=== PATIENT | male | born 1960 | race Caucasian/White ===

== ENCOUNTER 2016-08-10 14:24 | Inpatient (IN) | payer BC, OTHER ==
[~2016-08-10] VITALS: Ht 182.9 cm; Wt 108.9 kg
[~2016-08-10 14:24] MED LIST: AMLO5TAB2 PO; AMOX1TAB10 PO; ATOR20TA58 PO; DOXY100T PO; HYDR-2666 PO; ROPI1TAB PO
[2016-08-10] MEDS ORDERED: FENO134C PO (14:30)
[2016-08-10] MEDS ORDERED: IV NORMAL SALINE 1000ML BAG 1,000 ML IV SCH (14:56)
[2016-08-10] MEDS ORDERED: fentaNYL PF VIAL 100 MCG/2 ML VIAL IV PRN (15:00)
[2016-08-10] MEDS ORDERED: PIP/TAZO PER PHARMACY MC PRN (15:00)
[2016-08-10] MEDS: IV NORMAL SALINE 1000ML BAG 1,000 ML IV SCH ×2 (15:05→21:45)
[2016-08-10] MEDS ORDERED: ACETAMINOPHEN 325 MG TABLET. PO PRN (15:15)
[2016-08-10] MEDS ORDERED: MORPHINE SULFATE 4 MG/ML DISP.SYRIN. IV PRN (15:15)
[2016-08-10] MEDS ORDERED: ONDANSETRON PF 4 MG/2 ML VIAL. IV PRN (15:15)
[2016-08-10] MEDS ORDERED: PIPERACILLIN/TAZOBACTAM 3.375 GM in IV NORMAL SALINE 50ML 50 ML IV ONE (15:15)
[2016-08-10 15:26] LABS: BASO % 0 % (0-3); EOS % 0 % (0-3); HEMATOCRIT 41.7 % (39.0-53.0); HEMOGLOBIN 14.7 g/dL (13.0-17.5); LYMPH # 1.1 x10^3/uL (1.0-4.8); LYMPH % 9 % (24-48); MEAN CORPUSCULAR HEMOGLOBIN 31 pg (25-35); MEAN CORPUSCULAR HGB CONC 35 g/dL (31-37); MEAN CORPUSCULAR VOLUME 89 fL (79-100); MONO % 4 % (0-9); NEUT % 87 % (31-73); PLATELET COUNT 162 x10^3/uL (140-400); RED CELL DISTRIBUTION WIDTH 13.3 % (11.5-14.5); WHITE BLOOD COUNT 13.4 x10^3/uL (4.0-11.0)
[2016-08-10 15:35] LABS: CALCIUM 8.8 mg/dL (8.5-10.1); CREATININE 1.2 mg/dL (0.7-1.3); GFR 62.9; POTASSIUM 3.4 mmol/L (3.5-5.1)
--- NOTE | 2016-08-10 15:35 | PHYS DOC ---
Past Medical History Past Medical History: High Cholesterol, Hypertension Past Surgical History: Appendectomy, Other Additional Past Surgical Histo: umbilical surgery Alcohol Use: None Drug Use: None Adult General Chief Complaint Chief Complaint: CELLULITIS HPI HPI Patient is a 56 year old male who presents with right lower extremity pain, swelling, and redness that started 2 days ago and has gradually worsened associated with fever up to 104 F exactly like prior presentation of right lower extremity cellulitis treated 4 months ago. States this time is worse than the last time. Has constant, severe pain. He denies injury, numbness, tingling, weakness, dyspnea. Review of Systems Review of Systems Constitutional: Denies fever or chills [] Eyes: Denies change in visual acuity, redness, or eye pain [] HENT: Denies nasal congestion or sore throat [] Respiratory: Denies cough or shortness of breath [] Cardiovascular: No additional information not addressed in HPI [] GI: Denies abdominal pain, nausea, vomiting, bloody stools or diarrhea [] : Denies dysuria or hematuria [] Musculoskeletal: Denies back pain [] Integument: Denies skin lesions [] Neurologic: Denies headache, focal weakness or sensory changes [] Endocrine: Denies polyuria or polydipsia [] Current Medications Current Medications Current Medications Medications (Trade) Dose Ordered Sig/Sina Start Time Stop Time Status Last Admin Dose Admin Fentanyl Citrate 75 mcg 75 mcg PRN Q15MIN PRN 08/10/16 15:00 08/11/16 14:59 08/10/16 15:25 75 MCG Piperacillin Sod/ Tazobactam Sod (Zosyn Per Pharmacy) 1 each PRN DAILY PRN 08/10/16 15:00 Sodium Chloride (Iv Sodium Chloride 0.9% 1000ml Bag) 1,000 ml @ 1,000 mls/hr Q1H 08/10/16 14:56 08/10/16 15:55 DC 08/10/16 15:25 1,000 MLS/HR Vancomycin HCl (Vanco Per Pharmacy) 1 each PRN DAILY PRN 08/10/16 15:00 08/10/16 16:15 1 EACH Allergies Allergies Allergies Coded Allergies Type Severity Reaction Last Updated Verified fish oil Allergy Intermediate 04/02/16 Yes iodine Allergy Intermediate 04/02/16 Yes niacin Allergy Intermediate 04/02/16 Yes shellfish derived Allergy Intermediate 04/02/16 Yes Physical Exam Physical Exam Constitutional: Well developed, well nourished, no acute distress, non-toxic appearance. [] HENT: Normocephalic, atraumatic, bilateral external ears normal, oropharynx moist, nose normal. [] Eyes: PERRLA, EOMI. [] Neck: Normal range of motion, supple. [] Cardiovascular: Regular tachycardia [] Lungs & Thorax: Bilateral breath sounds clear to auscultation [] Abdomen: Bowel sounds normal, soft, no tenderness. [] Skin: Warm, dry, no rash. [] Back: No tenderness, no CVA tenderness. [] Extremities: RLE with swelling/erythema/warmth/induration/appropriate tenderness distal to the knee with small patch of erythema/warmth/tenderness to medial thigh; soft compartments, no fluctuance; Able to flex/ex/IR/ER hip, knee full rom, ankle df/pf, SILT grossly; dp and pt pulses equal bilaterally Neurologic: Alert and oriented X 3, normal motor function, normal sensory function, no focal deficits noted. [] Psychologic: Affect normal, judgement normal, mood normal. [] Current Patient Data Vital Signs Vital Signs Date Time Temp Pulse Resp B/P Pulse Ox O2 Delivery O2 Flow Rate FiO2 08/10/16 15:00 116 26 128/76 95 08/10/16 14:29 96.0 Room Air 96.0 Lab Values Course & Med Decision Making Course & Med Decision Making Pertinent Labs and Imaging studies reviewed. (See chart for details) Has impressive cellulitis with SIRS criteria qualifying for sepsis. Will admit for IV antibiotics and IVFs. Discussed case with Dr. Carrero, who will admit. Infectious disease consultation placed. Dragon Disclaimer Dragon Disclaimer This electronic medical record was generated, in whole or in part, using a voice recognition dictation system. Departure Departure Impression: Primary Impression: Sepsis Additional Impression: Cellulitis Disposition: ADMITTED INPATIENT Admitting Physician: Ike Carrero Condition: STABLE Referrals: IKE CARRERO MD (PCP) Problem Qualifiers Primary Impression: Sepsis Sepsis type: sepsis due to unspecified organism Qualified Code: A41.9 - Sepsis, unspecified organism Additional Impression: Cellulitis Site of cellulitis: extremity Site of cellulitis of extremity: lower extremity Laterality: right Qualified Code: L03.115 - Cellulitis of right lower limb WHITE,J. CHIO MD Aug 10, 2016 15:35
[2016-08-10] MEDS ORDERED: VANCOMYCIN 2 GM in IV NORMAL SALINE 500ML BAG 500 ML IV ONE (15:45)
[2016-08-10 15:47] LABS: PLT ESTIMATE ADEQUATE (ADEQUATE)
[2016-08-10] MEDS ORDERED: IV NORMAL SALINE 1000ML BAG 1,000 ML IV ONE (16:00)
[2016-08-10] MEDS: VANCOMYCIN PER PHARMACY MC PRN (16:15)
[2016-08-10] MEDS ORDERED: VANCOMYCIN PER PHARMACY MC PRN (16:45)
[2016-08-10] MEDS ORDERED: NAPROXEN 500 MG TABLET PO PRN (16:45)
--- NOTE | 2016-08-10 17:02 | PDOC ---
Provider Note Provider Note history and physical dictated # [id number] GERDA HUMPHRIES MD Aug 10, 2016 17:02
[2016-08-10] MEDS ORDERED: POTASSIUM CHLORIDE 20 MEQ TABLET.ER. PO ONE (17:30)
[2016-08-10 17:48] VITALS: BP 127/81
[2016-08-10] MEDS: rOPINIRole 1 MG TABLET. PO SCH (18:08)
--- NOTE | 2016-08-10 18:25 | RAD ---
PROCEDURE Right lower extremity venous duplex study 08/10/2016 HISTORY Severe chronic right leg swelling. TECHNIQUE Using a combination of real-time ultrasound imaging and color flow and pulse Doppler imaging techniques along with graded compression and augmentation, duplex evaluation of the major deep venous structures of the right lower extremity was performed. Multiple images were obtained. FINDINGS There is no sonographic evidence of deep venous thrombosis involving the visualized deep venous structures of the right lower extremity. A 2.8 centimeter enlarged likely reactive right inguinal lymph node is seen. IMPRESSION There is no sonographic evidence of deep venous thrombosis involving the visualized deep venous structures of the right lower extremity. Electronically signed by: Gulshan Tidwell MD (Aug 10, 2016 18:23:56)
[2016-08-10 19:00] VITALS: BP 121/73
[2016-08-10] MEDS ORDERED: FENO48TA16 PO (19:01)
[2016-08-10] MEDS ORDERED: NAPR500T3 PO (19:04)
[2016-08-10] MEDS ORDERED: IBUP-1027 PO (19:04)
[2016-08-10] MEDS: POTASSIUM CL 20MEQ-0.45% NACL 1,000 ML IV SCH (19:17)
[2016-08-10] MEDS ORDERED: ASPI-482 PO (19:35)
[2016-08-10] MEDS ORDERED: MULT1TAB52 PO (19:35)
--- NOTE | 2016-08-10 21:10 | HP ---
ADMIT DATE: 08/10/2016 He is in room 528. HISTORY OF PRESENT ILLNESS: The patient is a 56-year-old white male with a history of hypertension, hyperlipidemia and previous history of cellulitis in the right lower extremity in March 2016. He was admitted to [facility] with a 3-day history of an increasing redness in his right leg associated with pain and swelling without any injury or skin tear. His temperature was up to 104 degrees yesterday and he was quite weak and has not been eating or drinking well. He did not go to the Emergency Room until today. In the Emergency Room, his lactic acid level was elevated. He had significant erythema in his right leg as well as in the right thigh and had an inguinal lymphadenopathy also noted near his right groin. His heart rate was about 120. He was lucid and his blood pressure was okay. His temperature he states was 104.2 degrees yesterday. He is therefore admitted for further evaluation of cellulitis of his right leg and sepsis. ALLERGIES AND INTOLERANCES: INCLUDE FISH OIL, IODINE, NIACIN, AND SHELLFISH. MEDICATIONS: Amlodipine 5 mg every day, atorvastatin 20 mg every day, Coenzyme Q10, every day, naproxen 500 mg b.i.d. p.r.n., multiple vitamin once a day and Requip 2 mg at 7 p.m. daily. PAST MEDICAL HISTORY: Significant for hypertension, hyperlipidemia, restless legs syndrome and benign prostatic hypertrophy. He had an appendectomy. He had a tubular adenoma, colon polypectomy in 09/2013. He had an umbilical hernia repair and he had cellulitis in his right leg and hospitalized for that in March 2016, SOCIAL HISTORY: He does not drink alcohol nor does he smoke cigarettes. He is employed. FAMILY HISTORY: Noncontributory. REVIEW OF SYSTEMS: GENERAL: He has had some fever and chills. CARDIOVASCULAR: No chest pain. PULMONARY: No cough or shortness of breath. GASTROINTESTINAL: No constipation or diarrhea. SKIN: He had the redness and cellulitis, right lower extremity. ENDOCRINE: No diabetes mellitus. NEUROLOGIC: No focal weakness, but generalized weakness. The rest of systems reviewed are negative except as stated in history of present illness. PHYSICAL EXAMINATION: VITAL SIGNS: Temperature is degrees, apical pulse 125, respiratory rate 18, blood pressure 128/71, oxygen saturation 95% on room air. HEENT: Eyes: Gaze is conjugate. Extraocular muscles are intact. Mouth: Tongue is midline. NECK: There is no cervical lymphadenopathy or thyroid enlargement. HEART: Reveals an S1, S2. There is no S3 or murmur. LUNGS: Clear. ABDOMEN: Soft, nontender. EXTREMITIES: Left lower extremity without edema. Dorsalis pedis pulse 2+. Right lower extremity has significant erythema from the medial aspect of his right foot involving the pretibial area and calf of his right lower extremity and also in the medial aspect of his right thigh. The right leg has significant redness in the pretibial area with some ecchymosis and it is warm and tender. It is swollen about 2+ on the right pretibial area. Examination between his toes shows no evidence of maceration, but he does have dry skin involving the plantar aspect of his right foot and does have a narrow crease abrasion in the right foot without any redness. He does have some lymphadenopathy in his medial right thigh near his groin. REVIEW OF LABORATORY TESTS: His white count was elevated at 13.4, hemoglobin 14.7, platelet count was 162,000. He had 63 polys and 20 bands in his white cell differential. Sodium 136, potassium 3.4, chloride 100, total CO2 was 25, BUN 17, creatinine 1.2, blood sugar nonfasting 184, lactic acid increased at 2.9, calcium 8.8. ASSESSMENT: 1. Cellulitis of the right leg, which is recurrent. 2. Sepsis. 3. Leukocytosis. 4. Hypokalemia. 5. Hypertension. 6. Hyperlipidemia. 7. Restless legs syndrome. PLAN: At this time is to consult Dr. Neo Pabon. Blood cultures x 2 have been ordered. We will get a CBC and CMP tomorrow, urinalysis, EKG and a chest x-ray. He is receiving IV vancomycin now. We will continue IV vancomycin per the pharmacist and IV Zosyn. Elevate the right leg. He had a venous Doppler of the right lower extremity to rule out a deep vein thrombosis. We will put her on some Lovenox for deep vein thrombosis prophylaxis while he is here. We will continue his amlodipine for his hypertension, atorvastatin for his hyperlipidemia and Requip for his restless legs syndrome and repeat a CBC tomorrow. Put him on a regular diet. Also consult Dr. Neo Pabon for Infectious Disease. GERDA HUMPHRIES MD DR: SILVERIO/faustino JOB#: [id number] / [id number]
[2016-08-10] MEDS: ATORVASTATIN CALCIUM 20 MG TABLET PO SCH (21:15)
[2016-08-10] MEDS: ENOXAPARIN 40 MG/0.4 ML SYRINGE. SQ SCH (21:16)
[2016-08-10] MEDS: ACETAMINOPHEN 325 MG TABLET. PO PRN (22:16)
[2016-08-10 22:52] LABS: BILIRUBIN,URINE NEGATIVE (NEG); GLUCOSE,URINE NEGATIVE (NEG); NITRITE,URINE NEGATIVE (NEG); PH,URINE 6.5; PROTEIN,URINE NEGATIVE (NEG-TRACE)
[2016-08-10 22:59] LABS: BACTERIA,URINE 0 /HPF (0-FEW); RBC,URINE OCC /HPF (0-2); SQUAMOUS EPITHELIAL CELL,UR OCC /LPF
[2016-08-10 23:00] VITALS: BP 127/75
[2016-08-11] MEDS: PIPERACILLIN/TAZOBACTAM 3.375 GM in IV NORMAL SALINE 50ML 50 ML IV SCH ×4 (00:09→17:24)
--- NOTE | 2016-08-11 01:30 | ACF ---
Admission Forms Criteria SEPSIS and OTHER FEBRILE ILLNESS, W/O FOCAL INFECTION Clinical Indications for Admission to Inpatient Care ( Place 'X' for any and all applicable criteria): Admission is indicated for ANY ONE of the following (1)(2)(3)(4): [ ] I. Bacteremia [ ]II. Suspected or identified specific infection requiring hospitalization (eg, meningitis, endocarditis) [ ]III. Hemodynamic instability [ ]IV. Altered mental status [X]V. Failure or unavailability of outpatient antimicrobial treatment [ ]. Hypoxemia [ ]VII. Seizures [ ]VIII. High-risk febrile neutropenia [ ]IX. Need for parenteral antibiotic in patient who is likely to abuse vascular access device (eg, injection drug user) [A](7) [ ]X. Temperature greater than 104.9 degrees F (40.5 degrees C) (oral) [ ]XI. Inpatient admission required rather than observation care because of ANY ONE of the following: [ ]1) Specific infection identified that is too severe for outpatient treatment or observation care trial [ ]2) Metabolic disorder (eg, hypoglycemia, hyperglycemia, metabolic acidosis) that is severe or persistent [ ]3) Temperature greater than 103.1 degrees F (39.5 degrees C) ( oral) that is not responsive to observation care treatment [ ]4) IV fluid to replace significant ongoing (eg, for over 24 hours) losses (> 3 L/m2 per day) [ ]5) Supplemental oxygen or respiratory treatments for over 24 hours that is performable only in acute inpatient setting [ ]6) Parenteral nutrition regimen need that must be implemented on inpatient basis [ ]7) Strict or protective (eg, laminar flow) isolation [ ]8) Other condition, treatment or monitoring requiring inpatient admission Extended stay beyond goal length of stay may be needed for(1)(3) [ ]a) Sepsis or septic shock(22) [ ]b) Positive blood cultures [ ]c) Insufficient oral intake [ ]d) High-risk febrile neutropenia(29)(30) [ ]e) Continued fever and clinical instability [ ]f) Clinically active comorbid illness (e.g,heart failure, renal failure , diabetes) The original [employer] content created by Brandi Salcedo has been revised. The portions of the content which have been revised are identified through the use of italic text or in bold, and Brandi Salcedo has neither reviewed nor approved the modified material. All other unmodified content is copyright [facility]. Please see references footnoted in the original [facility] edition 2016 Admission Criteria Met?: Yes FELIPA RAMSEY Aug 11, 2016 01:30
[2016-08-11 03:07] VITALS: BP 117/72
[2016-08-11] MEDS: IV NORMAL SALINE 1000ML BAG 1,000 ML IV SCH ×2 (04:25→21:50)
[2016-08-11 04:35] LABS: BASO % 0 % (0-3); EOS % 1 % (0-3); HEMATOCRIT 36.4 % (39.0-53.0); HEMOGLOBIN 12.8 g/dL (13.0-17.5); LYMPH # 1.4 x10^3/uL (1.0-4.8); LYMPH % 13 % (24-48); MEAN CORPUSCULAR HEMOGLOBIN 32 pg (25-35); MEAN CORPUSCULAR HGB CONC 35 g/dL (31-37); MEAN CORPUSCULAR VOLUME 90 fL (79-100); MONO % 6 % (0-9); NEUT % 81 % (31-73); PLATELET COUNT 144 x10^3/uL (140-400); RED BLOOD COUNT 4.05 x10^6/uL (4.30-5.70); RED CELL DISTRIBUTION WIDTH 13.4 % (11.5-14.5); WHITE BLOOD COUNT 10.8 x10^3/uL (4.0-11.0)
[2016-08-11 04:47] LABS: ALBUMIN 2.7 g/dL (3.4-5.0); ALBUMIN/GLOBULIN RATIO 0.7 (1.0-1.7); CREATININE 1.2 mg/dL (0.7-1.3); GFR 62.9; POTASSIUM 3.9 mmol/L (3.5-5.1); TOTAL BILIRUBIN 1.6 mg/dL (0.2-1.0); TOTAL PROTEIN 6.4 g/dL (6.4-8.2)
[2016-08-11] MEDS: VANCOMYCIN 1.75 GM in IV NORMAL SALINE 500ML BAG 500 ML IV SCH ×2 (05:49→15:12)
[2016-08-11 07:00] VITALS: BP 106/68
--- NOTE | 2016-08-11 08:22 | RAD ---
AP portable chest radiograph 08/10/2016 Clinical History: Fever with hypertension. An AP portable erect digital radiograph of the chest was obtained. Comparison study is dated 08/02/2015. The cardiac silhouette is borderline enlarged. The thoracic aorta is minimally tortuous. No acute pulmonary infiltrate is seen. No pleural effusion or pneumothorax is noted. Degenerative changes are seen involving the thoracic spine and both shoulders. Impression: No acute pulmonary infiltrate is seen.
[2016-08-11] MEDS: MULTIVITAMIN with MINERAL TABLET. PO SCH (08:37)
[2016-08-11] MEDS: VANCOMYCIN PER PHARMACY MC PRN (08:57)
[2016-08-11] MEDS ORDERED: amLODIPine BESYLATE 5 MG TABLET PO SCH (09:00)
[2016-08-11] MEDS: POTASSIUM CL 20MEQ-0.45% NACL 1,000 ML IV SCH (09:11)
--- NOTE | 2016-08-11 10:34 | PDOC ---
PROGRESS NOTES Subjective Subjective febrile yesterday. last temp okay. lab reviewed. wbc better. systolic bp 106 and will d/c amlodipine. says he ate his breakfast well. feels better. venous doppler RLE neg for DVT. Objective Objective Vital Signs Date Time Temp Pulse Resp B/P Pulse Ox O2 Delivery O2 Flow Rate FiO2 08/11/16 08:37 105 106/68 08/11/16 07:00 97.7 16 93 Room Air 97.7 Intake and Output 08/11/16 07:00 Intake Total 400 ml Output Total 1300 ml Balance -900 ml Intake Oral 400 ml Output Urine Total 1300 ml # Voids 2 Physical Exam Abdomen: Soft Heart: Regular rate, Normal S1, Normal S2 Extremities: Other (1 plus edmea RLE but leg raised in bed) General: Alert HEENT: Atraumatic Lungs: Clear to auscultation Neuro: Normal speech Psych/Mental Status: Mental status NL Skin: Other (erythema and ecchymosis right pretibial area. erthyme right calf and medial thigh fading slightly) Assessment Assessment Problems Medical Problems:1. Cellulitis of the right leg, which is recurrent. 2. Sepsis. 3. Leukocytosis.better 4. Hypokalemia.resolved 5. Hypertension.BP on low side 6. Hyperlipidemia. 7. Restless legs syndrome. (1) Cellulitis Status: Acute (2) Sepsis Status: Acute Plan Plan of Care continue iv vancomycin and zosyn ID consult d/c iv fluids d/c amlodipine continue lovenox for dvt prophylaxis elevate RLE eucerin lotion to right foot Comment Review of Relevant I have reviewed the following items amado (where applicable) has been applied. Labs Laboratory Tests Test 08/10/16 15:05 08/10/16 17:00 08/10/16 22:30 08/11/16 04:20 White Blood Count 13.4x10^3/uL (4.0-11.0) 10.8x10^3/uL (4.0-11.0) Red Blood Count 4.70x10^6/uL (4.30-5.70) 4.05x10^6/uL (4.30-5.70) Hemoglobin 14.7g/dL (13.0-17.5) 12.8g/dL (13.0-17.5) Hematocrit 41.7% (39.0-53.0) 36.4% (39.0-53.0) Mean Corpuscular Volume 89fL (79-100) 90fL (79-100) Mean Corpuscular Hemoglobin 31pg (25-35) 32pg (25-35) Mean Corpuscular Hemoglobin Concent 35g/dL (31-37) 35g/dL (31-37) Red Cell Distribution Width 13.3% (11.5-14.5) 13.4% (11.5-14.5) Platelet Count 162x10^3/uL (140-400) 144x10^3/uL (140-400) Neutrophils (%) (Auto) 87% (31-73) 81% (31-73) Lymphocytes (%) (Auto) 9% (24-48) 13% (24-48) Monocytes (%) (Auto) 4% (0-9) 6% (0-9) Eosinophils (%) (Auto) 0% (0-3) 1% (0-3) Basophils (%) (Auto) 0% (0-3) 0% (0-3) Neutrophils # (Auto) 11.7x10^3uL (1.8-7.7) 8.7x10^3uL (1.8-7.7) Lymphocytes # (Auto) 1.1x10^3/uL (1.0-4.8) 1.4x10^3/uL (1.0-4.8) Monocytes # (Auto) 0.5x10^3/uL (0.0-1.1) 0.6x10^3/uL (0.0-1.1) Eosinophils # (Auto) 0.0x10^3/uL (0.0-0.7) 0.1x10^3/uL (0.0-0.7) Basophils # (Auto) 0.0x10^3/uL (0.0-0.2) 0.0x10^3/uL (0.0-0.2) Segmented Neutrophils % 63% (35-66) Band Neutrophils % 20% (0-9) Lymphocytes % 12% (24-48) Monocytes % 5% (0-10) Platelet Estimate Adequate (ADEQUATE) Sodium Level 136mmol/L (136-145) 138mmol/L (136-145) Potassium Level 3.4mmol/L (3.5-5.1) 3.9mmol/L (3.5-5.1) Chloride Level 100mmol/L (98-107) 106mmol/L (98-107) Carbon Dioxide Level 25mmol/L (21-32) 26mmol/L (21-32) Anion Gap 11 (6-14) 6 (6-14) Blood Urea Nitrogen 17mg/dL (8-26) 12mg/dL (8-26) Creatinine 1.2mg/dL (0.7-1.3) 1.2mg/dL (0.7-1.3) Estimated GFR (Cockcroft-Gault) 62.9 62.9 Glucose Level 184mg/dL (70-99) 146mg/dL (70-99) Lactic Acid Level 2.9mmol/L (0.4-2.0) 1.7mmol/L (0.4-2.0) Calcium Level 8.8mg/dL (8.5-10.1) 8.0mg/dL (8.5-10.1) Urine Collection Type Unknown Urine Color Dk yellow Urine Clarity Clear Urine pH 6.5 Urine Specific [place] 1.020 Urine Protein Negativemg/dL (NEG-TRACE) Urine Glucose (UA) Negativemg/dL (NEG) Urine Ketones (Stick) Tracemg/dL (NEG) Urine Blood Negative (NEG) Urine Nitrite Negative (NEG) Urine Bilirubin Negative (NEG) Urine Urobilinogen Dipstick 4.0mg/dL (0.2 mg/dL) Urine Leukocyte Esterase Negative (NEG) Urine RBC Occ/HPF (0-2) Urine WBC 1-4/HPF (0-4) Urine Squamous Epithelial Cells Occ/LPF Urine Bacteria 0/HPF (0-FEW) Urine Mucus Mod/LPF BUN/Creatinine Ratio 10 (6-20) Total Bilirubin 1.6mg/dL (0.2-1.0) Aspartate Amino Transf (AST/SGOT) 19U/L (15-37) Alanine Aminotransferase (ALT/SGPT) 27U/L (16-63) Alkaline Phosphatase 43U/L (46-116) Total Protein 6.4g/dL (6.4-8.2) Albumin 2.7g/dL (3.4-5.0) Albumin/Globulin Ratio 0.7 (1.0-1.7) Laboratory Tests Test 08/10/16 15:05 08/10/16 17:00 08/10/16 22:30 08/11/16 04:20 White Blood Count 13.4x10^3/uL (4.0-11.0) 10.8x10^3/uL (4.0-11.0) Red Blood Count 4.70x10^6/uL (4.30-5.70) 4.05x10^6/uL (4.30-5.70) Hemoglobin 14.7g/dL (13.0-17.5) 12.8g/dL (13.0-17.5) Hematocrit 41.7% (39.0-53.0) 36.4% (39.0-53.0) Mean Corpuscular Volume 89fL (79-100) 90fL (79-100) Mean Corpuscular Hemoglobin 31pg (25-35) 32pg (25-35) Mean Corpuscular Hemoglobin Concent 35g/dL (31-37) 35g/dL (31-37) Red Cell Distribution Width 13.3% (11.5-14.5) 13.4% (11.5-14.5) Platelet Count 162x10^3/uL (140-400) 144x10^3/uL (140-400) Neutrophils (%) (Auto) 87% (31-73) 81% (31-73) Lymphocytes (%) (Auto) 9% (24-48) 13% (24-48) Monocytes (%) (Auto) 4% (0-9) 6% (0-9) Eosinophils (%) (Auto) 0% (0-3) 1% (0-3) Basophils (%) (Auto) 0% (0-3) 0% (0-3) Neutrophils # (Auto) 11.7x10^3uL (1.8-7.7) 8.7x10^3uL (1.8-7.7) Lymphocytes # (Auto) 1.1x10^3/uL (1.0-4.8) 1.4x10^3/uL (1.0-4.8) Monocytes # (Auto) 0.5x10^3/uL (0.0-1.1) 0.6x10^3/uL (0.0-1.1) Eosinophils # (Auto) 0.0x10^3/uL (0.0-0.7) 0.1x10^3/uL (0.0-0.7) Basophils # (Auto) 0.0x10^3/uL (0.0-0.2) 0.0x10^3/uL (0.0-0.2) Segmented Neutrophils % 63% (35-66) Band Neutrophils % 20% (0-9) Lymphocytes % 12% (24-48) Monocytes % 5% (0-10) Platelet Estimate Adequate (ADEQUATE) Sodium Level 136mmol/L (136-145) 138mmol/L (136-145) Potassium Level 3.4mmol/L (3.5-5.1) 3.9mmol/L (3.5-5.1) Chloride Level 100mmol/L (98-107) 106mmol/L (98-107) Carbon Dioxide Level 25mmol/L (21-32) 26mmol/L (21-32) Anion Gap 11 (6-14) 6 (6-14) Blood Urea Nitrogen 17mg/dL (8-26) 12mg/dL (8-26) Creatinine 1.2mg/dL (0.7-1.3) 1.2mg/dL (0.7-1.3) Estimated GFR (Cockcroft-Gault) 62.9 62.9 Glucose Level 184mg/dL (70-99) 146mg/dL (70-99) Lactic Acid Level 2.9mmol/L (0.4-2.0) 1.7mmol/L (0.4-2.0) Calcium Level 8.8mg/dL (8.5-10.1) 8.0mg/dL (8.5-10.1) Urine Collection Type Unknown Urine Color Dk yellow Urine Clarity Clear Urine pH 6.5 Urine Specific [place] 1.020 Urine Protein Negativemg/dL (NEG-TRACE) Urine Glucose (UA) Negativemg/dL (NEG) Urine Ketones (Stick) Tracemg/dL (NEG) Urine Blood Negative (NEG) Urine Nitrite Negative (NEG) Urine Bilirubin Negative (NEG) Urine Urobilinogen Dipstick 4.0mg/dL (0.2 mg/dL) Urine Leukocyte Esterase Negative (NEG) Urine RBC Occ/HPF (0-2) Urine WBC 1-4/HPF (0-4) Urine Squamous Epithelial Cells Occ/LPF Urine Bacteria 0/HPF (0-FEW) Urine Mucus Mod/LPF BUN/Creatinine Ratio 10 (6-20) Total Bilirubin 1.6mg/dL (0.2-1.0) Aspartate Amino Transf (AST/SGOT) 19U/L (15-37) Alanine Aminotransferase (ALT/SGPT) 27U/L (16-63) Alkaline Phosphatase 43U/L (46-116) Total Protein 6.4g/dL (6.4-8.2) Albumin 2.7g/dL (3.4-5.0) Albumin/Globulin Ratio 0.7 (1.0-1.7) Medications Current Medications Fentanyl Citrate 75 mcg 75 mcg PRN Q15MIN PRN IV PAIN GREATER THAN 3/10 Last administered on 08/10/16 15:25; Start 08/10/16 at 15:00; Stop 08/11/16 at 14:59 Sodium Chloride (Iv Sodium Chloride 0.9% 1000ml Bag) 1,000 ml @ 1,000 mls/hr Q1H IV Last administered on 08/10/16 15:25; Start 08/10/16 at 14:56; Stop at 15:55; Status DC Vancomycin HCl (Vanco Per Pharmacy) 1 each PRN DAILY PRN MC SEE COMMENTS Last administered on 08/11/16 08:57; Start 08/10/16 at 15:00 Piperacillin Sod/ Tazobactam Sod 1 each 1 each PRN DAILY PRN MC SEE COMMENTS; Start 08/10/16 at 15:00 Vancomycin HCl 2 gm/Sodium Chloride 500 ml @ 250 mls/hr 1X ONCE IV Last administered on 08/10/16 16:07; Start 08/10/16 at 15:45; Stop 08/10/16 at 17:44 ; Status DC Piperacillin Sod/ Tazobactam Sod/ Sodium Chloride (Zosyn/Iv Sodium Chloride 0.9 % 50ml) 50 ml @ 100 mls/hr 1X ONCE IV Last administered on 08/10/16 15:25; Start 08/10/16 at 15:15; Stop 08/10/16 at 15:44; Status DC Ondansetron HCl (Zofran) 4 mg PRN Q8HRS PRN IV NAUSEA/VOMITING Last administered on 08/10/16 19:27; Start 08/10/16 at 15:15; Stop 08/11/16 at 15:14 Morphine Sulfate 4 mg 4 mg PRN Q2HR PRN IV PAIN; Start 08/10/16 at 15:15; Stop 08/11/16 at 15:14 Sodium Chloride (Iv Sodium Chloride 0.9% 1000ml Bag) 1,000 ml @ 150 mls/hr Q6H40M IV ; Start 08/10/16 at 15:05; Stop 08/11/16 at 15:04 Acetaminophen 650 mg 650 mg PRN Q4HRS PRN PO FEVER; Start 08/10/16 at 15:15; Stop 08/10/16 at 17:02; Status DC Piperacillin Sod/ Tazobactam Sod 3.375 gm/Sodium Chloride 50 ml @ 100 mls/hr Q6HRS IV Last administered on 08/11/16 05:59; Start 08/11/16 at 00:00 Sodium Chloride 1,000 ml @ 1,000 mls/hr 1X ONCE IV Last administered on 17:50; Start 08/10/16 at 16:00; Stop 08/10/16 at 16:59; Status DC Vancomycin HCl/ Sodium Chloride (Iv Sodium Chloride 0.9% 500ml Bag) 500 ml @ 250 mls/hr Q12H IV Last administered on 08/11/16 05:49; Start 08/11/16 at 04: 00 Vancomycin HCl 1 each 1X ONCE MC ; Start 08/12/16 at 03:30; Stop 08/12/16 at 03 :31 Vancomycin HCl (Vanco Per Pharmacy) 1 each PRN DAILY PRN MC SEE COMMENTS; Start 08/10/16 at 16:45; Status UNV Acetaminophen (Tylenol) 650 mg PRN Q4HRS PRN PO MILD PAIN / TEMP Last administered on 08/10/16 22:16; Start 08/10/16 at 16:45 Acetaminophen/ Hydrocodone Bitart (Lortab 5/325) 1 tab PRN Q4HRS PRN PO PAIN; Start 08/10/16 at 16:45 Amlodipine Besylate (Norvasc) 5 mg DAILY PO Last administered on 08/11/16 08: 37; Start 08/11/16 at 09:00 Atorvastatin Calcium (Lipitor) 20 mg QHS PO Last administered on 08/10/16 21: 15; Start 08/10/16 at 21:00 Multivitamins (Thera M Plus) 1 tab DAILY PO Last administered on 08/11/16 08: 37; Start 08/11/16 at 09:00 Naproxen (Naprosyn) 500 mg PRN BID PRN PO PAIN Last administered on 08/11/16 02:39; Start 08/10/16 at 16:45 Ropinirole HCl 2 mg 2 mg DAILY@19 PO Last administered on 08/10/16 18:08; Start 08/10/16 at 19:00 Potassium Chloride/Sodium Chloride (KCl 20 Meq-0.45% Nacl) 1,000 ml @ 75 mls/ hr [id number] IV Last administered on 08/11/16 09:11; Start 08/10/16 at 18:00 Potassium Chloride (Klor-Con) 20 meq 1X ONCE PO Last administered on 18:07; Start 08/10/16 at 17:30; Stop 08/10/16 at 17:31; Status DC Enoxaparin Sodium (Lovenox 40mg Syringe) 40 mg Q24H SQ Last administered on 21:16; Start 08/10/16 at 21:00 Active Scripts Active Requip (Ropinirole Hcl) 1 Mg Tablet 2 Mg PO Q24H Atorvastatin Calcium 20 Mg Tablet 20 Mg PO QHS Amlodipine Besylate 5 Mg Tablet 5 Mg PO DAILY Reported Aspir 81 (Aspirin) 81 Mg Tablet.dr 1 Tab PO DAILY Multivitamins (Multivitamin) 1 Each Tablet 1 Tab PO DAILY Ibuprofen 400 Mg Tablet 200 Mg PO PRN Q6HRS PRN Naproxen 500 Mg Tablet 1 Tab PO Q6HRS PRN Tricor (Fenofibrate Nanocrystallized) 48 Mg Tablet 1 Tab PO DAILY Vitals/I & O Vital Sign - Last 24 Hours 08/10/16 08/10/16 08/10/16 4/22/17 14:29 15:00 15:25 16:00 Temp 96.0 96.0 Pulse 125 116 114 Resp 24 B/P 128/71 128/76 124/72 Pulse Ox 95 95 96 O2 Delivery Room Air 08/10/16 08/10/16 08/10/16 08/10/16 16:13 17:00 17:48 19:00 Temp 99.5 100.9 99.5 100.9 Pulse 116 113 114 Resp 20 B/P 112/73 127/81 121/73 Pulse Ox 94 94 95 O2 Delivery Room Air Room Air 08/10/16 08/11/16 08/11/16 08/11/16 23:00 03:07 07:00 08:37 Temp 100.5 100.3 97.7 100.5 100.3 97.7 Pulse 120 114 105 105 Resp 16 B/P 127/75 117/72 106/68 106/68 Pulse Ox 92 91 93 O2 Delivery Room Air Room Air Room Air Intake and Output 08/10/16 08/10/16 08/11/16 15:00 23:00 07:00 Intake Total 100 ml 300 ml Output Total 1300 ml Balance 100 ml -1000 ml GERDA HUMPHRIES MD Aug 11, 2016 10:34
[2016-08-11 11:00] VITALS: BP 112/79
[2016-08-11] MEDS: MINERAL OIL/PETROLATUM TOPICAL CREAM 113GM JAR. TP SCH ×2 (11:44→21:50)
--- NOTE | 2016-08-11 12:33 | PDOC ---
Infectious Disease Note Vital Sign Vital Signs Vital Signs Date Time Temp Pulse Resp B/P Pulse Ox O2 Delivery O2 Flow Rate FiO2 08/11/16 08:37 105 106/68 08/11/16 07:00 97.7 16 93 Room Air 97.7 Labs Lab Laboratory Tests Test 08/10/16 15:05 08/10/16 17:00 08/10/16 22:30 08/11/16 04:20 White Blood Count 13.4x10^3/uL (4.0-11.0) 10.8x10^3/uL (4.0-11.0) Red Blood Count 4.70x10^6/uL (4.30-5.70) 4.05x10^6/uL (4.30-5.70) Hemoglobin 14.7g/dL (13.0-17.5) 12.8g/dL (13.0-17.5) Hematocrit 41.7% (39.0-53.0) 36.4% (39.0-53.0) Mean Corpuscular Volume 89fL (79-100) 90fL (79-100) Mean Corpuscular Hemoglobin 31pg (25-35) 32pg (25-35) Mean Corpuscular Hemoglobin Concent 35g/dL (31-37) 35g/dL (31-37) Red Cell Distribution Width 13.3% (11.5-14.5) 13.4% (11.5-14.5) Platelet Count 162x10^3/uL (140-400) 144x10^3/uL (140-400) Neutrophils (%) (Auto) 87% (31-73) 81% (31-73) Lymphocytes (%) (Auto) 9% (24-48) 13% (24-48) Monocytes (%) (Auto) 4% (0-9) 6% (0-9) Eosinophils (%) (Auto) 0% (0-3) 1% (0-3) Basophils (%) (Auto) 0% (0-3) 0% (0-3) Neutrophils # (Auto) 11.7x10^3uL (1.8-7.7) 8.7x10^3uL (1.8-7.7) Lymphocytes # (Auto) 1.1x10^3/uL (1.0-4.8) 1.4x10^3/uL (1.0-4.8) Monocytes # (Auto) 0.5x10^3/uL (0.0-1.1) 0.6x10^3/uL (0.0-1.1) Eosinophils # (Auto) 0.0x10^3/uL (0.0-0.7) 0.1x10^3/uL (0.0-0.7) Basophils # (Auto) 0.0x10^3/uL (0.0-0.2) 0.0x10^3/uL (0.0-0.2) Segmented Neutrophils % 63% (35-66) Band Neutrophils % 20% (0-9) Lymphocytes % 12% (24-48) Monocytes % 5% (0-10) Platelet Estimate Adequate (ADEQUATE) Sodium Level 136mmol/L (136-145) 138mmol/L (136-145) Potassium Level 3.4mmol/L (3.5-5.1) 3.9mmol/L (3.5-5.1) Chloride Level 100mmol/L (98-107) 106mmol/L (98-107) Carbon Dioxide Level 25mmol/L (21-32) 26mmol/L (21-32) Anion Gap 11 (6-14) 6 (6-14) Blood Urea Nitrogen 17mg/dL (8-26) 12mg/dL (8-26) Creatinine 1.2mg/dL (0.7-1.3) 1.2mg/dL (0.7-1.3) Estimated GFR (Cockcroft-Gault) 62.9 62.9 Glucose Level 184mg/dL (70-99) 146mg/dL (70-99) Lactic Acid Level 2.9mmol/L (0.4-2.0) 1.7mmol/L (0.4-2.0) Calcium Level 8.8mg/dL (8.5-10.1) 8.0mg/dL (8.5-10.1) Urine Collection Type Unknown Urine Color Dk yellow Urine Clarity Clear Urine pH 6.5 Urine Specific [place] 1.020 Urine Protein Negativemg/dL (NEG-TRACE) Urine Glucose (UA) Negativemg/dL (NEG) Urine Ketones (Stick) Tracemg/dL (NEG) Urine Blood Negative (NEG) Urine Nitrite Negative (NEG) Urine Bilirubin Negative (NEG) Urine Urobilinogen Dipstick 4.0mg/dL (0.2 mg/dL) Urine Leukocyte Esterase Negative (NEG) Urine RBC Occ/HPF (0-2) Urine WBC 1-4/HPF (0-4) Urine Squamous Epithelial Cells Occ/LPF Urine Bacteria 0/HPF (0-FEW) Urine Mucus Mod/LPF BUN/Creatinine Ratio 10 (6-20) Total Bilirubin 1.6mg/dL (0.2-1.0) Aspartate Amino Transf (AST/SGOT) 19U/L (15-37) Alanine Aminotransferase (ALT/SGPT) 27U/L (16-63) Alkaline Phosphatase 43U/L (46-116) Total Protein 6.4g/dL (6.4-8.2) Albumin 2.7g/dL (3.4-5.0) Albumin/Globulin Ratio 0.7 (1.0-1.7) Objective Assessment Recurrent cellulitis of RLE w/ rapid onset Fever Leukocytosis Lactic acidosis HT Plan Plan of Care Vanc and Zosyn Monitor response, f/u am labs and cultures Leg elevation Thank you [id number] Patient seen and examined. Chart reviewed. Case d/w [employer]. Agree with above plan SIRISHA FAGAN APRN Aug 11, 2016 12:33 JOSELYN GODINEZ MD Aug 11, 2016 15:55
[2016-08-11 15:00] VITALS: BP 119/77
[2016-08-11] MEDS: CLINDAMYCIN HCL 150 MG CAPSULE. PO SCH ×2 (17:24→21:49)
[2016-08-11 19:00] VITALS: BP 140/78
[2016-08-11] MEDS: rOPINIRole 1 MG TABLET. PO SCH (19:55)
[2016-08-11] MEDS: ACETAMINOPHEN 325 MG TABLET. PO PRN (21:49)
[2016-08-11] MEDS: ATORVASTATIN CALCIUM 20 MG TABLET PO SCH (21:49)
[2016-08-11] MEDS: ENOXAPARIN 40 MG/0.4 ML SYRINGE. SQ SCH (21:50)
[2016-08-11 23:00] VITALS: BP 139/79
[2016-08-12] MEDS: PIPERACILLIN/TAZOBACTAM 3.375 GM in IV NORMAL SALINE 50ML 50 ML IV SCH ×2 (00:16→07:37)
[2016-08-12 03:00] VITALS: BP 124/73
[2016-08-12 03:53] LABS: BASO % 0 % (0-3); EOS % 1 % (0-3); HEMATOCRIT 36.3 % (39.0-53.0); HEMOGLOBIN 12.8 g/dL (13.0-17.5); LYMPH # 1.9 x10^3/uL (1.0-4.8); LYMPH % 21 % (24-48); MEAN CORPUSCULAR HEMOGLOBIN 31 pg (25-35); MEAN CORPUSCULAR HGB CONC 35 g/dL (31-37); MEAN CORPUSCULAR VOLUME 89 fL (79-100); MONO % 7 % (0-9); NEUT % 71 % (31-73); PLATELET COUNT 153 x10^3/uL (140-400); RED BLOOD COUNT 4.09 x10^6/uL (4.30-5.70); RED CELL DISTRIBUTION WIDTH 13.1 % (11.5-14.5); WHITE BLOOD COUNT 9.2 x10^3/uL (4.0-11.0)
[2016-08-12 04:03] LABS: CALCIUM 7.8 mg/dL (8.5-10.1); CREATININE 0.9 mg/dL (0.7-1.3); GFR 87.6
[2016-08-12] MEDS ORDERED: VANCOMYCIN 2 GM in IV NORMAL SALINE 500ML BAG 500 ML IV SCH (04:30)
[2016-08-12] MEDS: VANCOMYCIN PER PHARMACY MC PRN ×2 (05:56→05:57)
--- NOTE | 2016-08-12 06:03 | CONS ---
DATE OF CONSULTATION: 08/10/2016 REFERRING PHYSICIAN: Dr. Garcia. REASON FOR CONSULTATION: Right lower extremity cellulitis. HISTORY OF PRESENT ILLNESS: This patient is a 56-year-old male, who about 4-5 days ago was getting ready for bed, he noticed his right lower leg was swollen and red. He had been working out in the yard earlier that day. He does not recall any injury or insect bites. That night, he slept with his leg elevated. By morning, he noticed the swelling had improved. As the day progressed, he started not to feel well. He developed a fever of 104 associated with shakes/chills, generalized weakness and fatigue. Over the next couple of days, the swelling and redness increased and the leg became more painful. He took ibuprofen, which relieved his fever, but not the pain. He had a previous history of cellulitis of the right lower leg in 2016 where he was hospitalized and treated with IV antibiotics. He feels this time symptoms are much worse. On arrival to the ER, he had elevated white blood cell count of 13,400, segs 63%, bands 20%. Lactic acid 2.9 and a creatinine of 1.2. Blood cultures are pending. No sonographic evidence of DVT of right leg noted. He started on vancomycin and Zosyn. Since admission, the patient had been running low-grade fevers, which are starting to settle down so far today. The patient feels that the redness is starting to recede some, though his leg is still quite tender to the touch and swollen. His appetite has since improved. He ate a good breakfast earlier. He denies nausea, vomiting or diarrhea. He denies muscle aches, joint pains or rash. He denies dysuria, frequency or urgency. He denies headache, nasal/sinus congestion or sore throat. He denies cough, shortness of air ___[id number]__ or wheezing. He denies chest pain or palpitations. PAST MEDICAL HISTORY: Hypertension and hyperlipidemia. PAST SURGICAL HISTORY: Appendectomy. SOCIAL HISTORY: The patient is . He lives at home. 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 Nonsmoker. No history of alcohol or illicit drug use. FAMILY HISTORY: Positive for heart disease and cancer. ALLERGIES: LISTED NIACIN, IODINE AND SHELLFISH. MEDICATIONS: Vancomycin, Zosyn. Other medications are available and have been reviewed on the MAR. REVIEW OF SYSTEMS: Per HPI, otherwise all other review of systems are negative. PHYSICAL EXAMINATION: GENERAL: A male, propped up in bed with his right leg elevated, in no apparent distress. VITAL SIGNS: Temperature 97.7, T-max 100.9, blood pressure 106/68, heart rate 105, respiratory rate 16, pulse oximetry is 93% on room air, weight is 240 pounds. HEENT: Pupils equally round, reactive. Normal conjunctivae. Oropharynx cavity pink and moist. No lesions seen. NECK: Supple, no adenopathy present. CHEST: Lungs clear to auscultation. HEART: Normal S1 and S2. No murmur appreciated. ABDOMEN: Bowel sounds are present, soft, nontender. EXTREMITIES: Unremarkable except right lower extremity is swollen and markedly erythematous, primarily below the knee and ankle, a small area on the anterior thigh. Warm and tender. Distal pulses palpable. NEUROLOGIC: Alert and oriented x 3. Moves all extremities. SKIN: Without rash. LABORATORY DATA: Today; WBC 10.8, hemoglobin 12.8, platelet count 144,000. Electrolytes are unremarkable. Creatinine 1.2, BUN 12, glucose 146. Repeat lactic acid 1.7, total bilirubin 1.6, AST 19, ALT 27, albumin 2.7. Urinalysis unremarkable for infection. Blood cultures are pending. Venous Doppler ultrasound, negative for DVT. Chest x-ray unremarkable. IMPRESSION: 1. Recurrent cellulitis of right lower extremity with rapid onset. 2. Fever. 3. Leukocytosis. 4. Lactic acidosis. 5. Hypertension. PLAN: Continue the vancomycin and Zosyn for now. Monitor response and will follow up on the morning laboratory values and cultures. Leg elevation. Thank you, Dr. Garcia for asking us to participate in this patient's care. Should you have further questions or concerns, please call. JOSELYN GDOINEZ MD DR: JESÚS/faustino JOB#: [id number] / [id number]
--- NOTE | 2016-08-12 06:45 | EKG ---
[facility] [address] [place] [address] Test Date: 2016-08-11 Test Time: 07:28:41 Pat Name: ABDULKADIR JOSEPH Department: Room: 528 1 Gender: M Account Development Representative: CASEY : 1960 Requested By: GERDA HUMPHRIES Order Number: [id number] Reading MD: Alan López Measurements Intervals [place] Rate: 112 P: 45 NM: 158 QRS: 63 QRSD: 98 T: 29 QT: 318 QTc: 436 Interpretive Statements SINUS TACHYCARDIA INCOMPLETE RIGHT BUNDLE BRANCH BLOCK Electronically Signed On 08-13-2016 15:32:36 CDT by Alan López
[2016-08-12 07:00] VITALS: BP 144/80
--- NOTE | 2016-08-12 08:42 | PDOC ---
PROGRESS NOTES Subjective Subjective feels better. febrile last night but afebrile this morning. 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 lab reviewed. blood cultures negative so far. Objective Objective Vital Signs Date Time Temp Pulse Resp B/P Pulse Ox O2 Delivery O2 Flow Rate FiO2 08/12/16 03:00 97.9 107 24 124/73 93 Room Air 97.9 Intake and Output 08/12/16 07:00 Intake Total 650 ml Output Total 3100 ml Balance -2450 ml Intake Oral 600 ml IV Total 50 ml Output Urine Total 3100 ml Physical Exam Abdomen: Soft Heart: Regular rate, Normal S1, Normal S2 Extremities: Other (1 plus edema RLE) General: Alert HEENT: Atraumatic Lungs: Clear to auscultation Neuro: Normal speech Psych/Mental Status: Mental status NL Skin: Other (erythema and ecchymosis and tenderness right pretibial area. thigh and upper calf redness fading) Assessment Assessment Problems Medical Problems:1. Cellulitis of the right leg, which is recurrent. improving 2. Sepsis. 3. Leukocytosis. resolved 4. Hypokalemia. resolved 5. Hypertension. okay off of amlodipine 6. Hyperlipidemia. 7. Restless legs syndrome. (1) Cellulitis Status: Acute (2) Sepsis Status: Acute Plan Plan of Care continue iv vancomycin and zosyn. Comment Review of Relevant I have reviewed the following items amado (where applicable) has been applied. Labs Laboratory Tests Test 08/10/16 15:05 08/10/16 17:00 08/10/16 22:30 08/11/16 04:20 White Blood Count 13.4x10^3/uL (4.0-11.0) 10.8x10^3/uL (4.0-11.0) Red Blood Count 4.70x10^6/uL (4.30-5.70) 4.05x10^6/uL (4.30-5.70) Hemoglobin 14.7g/dL (13.0-17.5) 12.8g/dL (13.0-17.5) Hematocrit 41.7% (39.0-53.0) 36.4% (39.0-53.0) Mean Corpuscular Volume 89fL (79-100) 90fL (79-100) Mean Corpuscular Hemoglobin 31pg (25-35) 32pg (25-35) Mean Corpuscular Hemoglobin Concent 35g/dL (31-37) 35g/dL (31-37) Red Cell Distribution Width 13.3% (11.5-14.5) 13.4% (11.5-14.5) Platelet Count 162x10^3/uL (140-400) 144x10^3/uL (140-400) Neutrophils (%) (Auto) 87% (31-73) 81% (31-73) Lymphocytes (%) (Auto) 9% (24-48) 13% (24-48) Monocytes (%) (Auto) 4% (0-9) 6% (0-9) Eosinophils (%) (Auto) 0% (0-3) 1% (0-3) Basophils (%) (Auto) 0% (0-3) 0% (0-3) Neutrophils # (Auto) 11.7x10^3uL (1.8-7.7) 8.7x10^3uL (1.8-7.7) Lymphocytes # (Auto) 1.1x10^3/uL (1.0-4.8) 1.4x10^3/uL (1.0-4.8) Monocytes # (Auto) 0.5x10^3/uL (0.0-1.1) 0.6x10^3/uL (0.0-1.1) Eosinophils # (Auto) 0.0x10^3/uL (0.0-0.7) 0.1x10^3/uL (0.0-0.7) Basophils # (Auto) 0.0x10^3/uL (0.0-0.2) 0.0x10^3/uL (0.0-0.2) Segmented Neutrophils % 63% (35-66) Band Neutrophils % 20% (0-9) Lymphocytes % 12% (24-48) Monocytes % 5% (0-10) Platelet Estimate Adequate (ADEQUATE) Sodium Level 136mmol/L (136-145) 138mmol/L (136-145) Potassium Level 3.4mmol/L (3.5-5.1) 3.9mmol/L (3.5-5.1) Chloride Level 100mmol/L (98-107) 106mmol/L (98-107) Carbon Dioxide Level 25mmol/L (21-32) 26mmol/L (21-32) Anion Gap 11 (6-14) 6 (6-14) Blood Urea Nitrogen 17mg/dL (8-26) 12mg/dL (8-26) Creatinine 1.2mg/dL (0.7-1.3) 1.2mg/dL (0.7-1.3) Estimated GFR (Cockcroft-Gault) 62.9 62.9 Glucose Level 184mg/dL (70-99) 146mg/dL (70-99) Lactic Acid Level 2.9mmol/L (0.4-2.0) 1.7mmol/L (0.4-2.0) Calcium Level 8.8mg/dL (8.5-10.1) 8.0mg/dL (8.5-10.1) Urine Collection Type Unknown Urine Color Dk yellow Urine Clarity Clear Urine pH 6.5 Urine Specific Cotter 1.020 Urine Protein Negativemg/dL (NEG-TRACE) Urine Glucose (UA) Negativemg/dL (NEG) Urine Ketones (Stick) Tracemg/dL (NEG) Urine Blood Negative (NEG) Urine Nitrite Negative (NEG) Urine Bilirubin Negative (NEG) Urine Urobilinogen Dipstick 4.0mg/dL (0.2 mg/dL) Urine Leukocyte Esterase Negative (NEG) Urine RBC Occ/HPF (0-2) Urine WBC 1-4/HPF (0-4) Urine Squamous Epithelial Cells Occ/LPF Urine Bacteria 0/HPF (0-FEW) Urine Mucus Mod/LPF BUN/Creatinine Ratio 10 (6-20) Total Bilirubin 1.6mg/dL (0.2-1.0) Aspartate Amino Transf (AST/SGOT) 19U/L (15-37) Alanine Aminotransferase (ALT/SGPT) 27U/L (16-63) Alkaline Phosphatase 43U/L (46-116) Total Protein 6.4g/dL (6.4-8.2) Albumin 2.7g/dL (3.4-5.0) Albumin/Globulin Ratio 0.7 (1.0-1.7) Test 4/24/17 03:10 White Blood Count 9.2x10^3/uL (4.0-11.0) Red Blood Count 4.09x10^6/uL (4.30-5.70) Hemoglobin 12.8g/dL (13.0-17.5) Hematocrit 36.3% (39.0-53.0) Mean Corpuscular Volume 89fL (79-100) Mean Corpuscular Hemoglobin 31pg (25-35) Mean Corpuscular Hemoglobin Concent 35g/dL (31-37) Red Cell Distribution Width 13.1% (11.5-14.5) Platelet Count 153x10^3/uL (140-400) Neutrophils (%) (Auto) 71% (31-73) Lymphocytes (%) (Auto) 21% (24-48) Monocytes (%) (Auto) 7% (0-9) Eosinophils (%) (Auto) 1% (0-3) Basophils (%) (Auto) 0% (0-3) Neutrophils # (Auto) 6.6x10^3uL (1.8-7.7) Lymphocytes # (Auto) 1.9x10^3/uL (1.0-4.8) Monocytes # (Auto) 0.6x10^3/uL (0.0-1.1) Eosinophils # (Auto) 0.1x10^3/uL (0.0-0.7) Basophils # (Auto) 0.0x10^3/uL (0.0-0.2) Sodium Level 139mmol/L (136-145) Potassium Level 4.0mmol/L (3.5-5.1) Chloride Level 106mmol/L (98-107) Carbon Dioxide Level 25mmol/L (21-32) Anion Gap 8 (6-14) Blood Urea Nitrogen 10mg/dL (8-26) Creatinine 0.9mg/dL (0.7-1.3) Estimated GFR (Cockcroft-Gault) 87.6 Glucose Level 105mg/dL (70-99) Calcium Level 7.8mg/dL (8.5-10.1) Vancomycin Level Trough 8.2mcg/mL (10.0-20.0) Vancomycin Last Dose Date 08/11/16 Vancomycin Last Dose Time 1600 Laboratory Tests Test 08/12/16 03:10 White Blood Count 9.2x10^3/uL (4.0-11.0) Red Blood Count 4.09x10^6/uL (4.30-5.70) Hemoglobin 12.8g/dL (13.0-17.5) Hematocrit 36.3% (39.0-53.0) Mean Corpuscular Volume 89fL (79-100) Mean Corpuscular Hemoglobin 31pg (25-35) Mean Corpuscular Hemoglobin Concent 35g/dL (31-37) Red Cell Distribution Width 13.1% (11.5-14.5) Platelet Count 153x10^3/uL (140-400) Neutrophils (%) (Auto) 71% (31-73) Lymphocytes (%) (Auto) 21% (24-48) Monocytes (%) (Auto) 7% (0-9) Eosinophils (%) (Auto) 1% (0-3) Basophils (%) (Auto) 0% (0-3) Neutrophils # (Auto) 6.6x10^3uL (1.8-7.7) Lymphocytes # (Auto) 1.9x10^3/uL (1.0-4.8) Monocytes # (Auto) 0.6x10^3/uL (0.0-1.1) Eosinophils # (Auto) 0.1x10^3/uL (0.0-0.7) Basophils # (Auto) 0.0x10^3/uL (0.0-0.2) Sodium Level 139mmol/L (136-145) Potassium Level 4.0mmol/L (3.5-5.1) Chloride Level 106mmol/L (98-107) Carbon Dioxide Level 25mmol/L (21-32) Anion Gap 8 (6-14) Blood Urea Nitrogen 10mg/dL (8-26) Creatinine 0.9mg/dL (0.7-1.3) Estimated GFR (Cockcroft-Gault) 87.6 Glucose Level 105mg/dL (70-99) Calcium Level 7.8mg/dL (8.5-10.1) Vancomycin Level Trough 8.2mcg/mL (10.0-20.0) Vancomycin Last Dose Date 08/11/16 Vancomycin Last Dose Time 1600 Microbiology 08/10/16 Blood Culture - Preliminary, Resulted NO GROWTH AFTER 1 DAY Medications Current Medications Fentanyl Citrate 75 mcg 75 mcg PRN Q15MIN PRN IV PAIN GREATER THAN 3/10 Last administered on 08/10/16 15:25; Start 08/10/16 at 15:00; Stop 08/11/16 at 14:59 ; Status DC Sodium Chloride (Iv Sodium Chloride 0.9% 1000ml Bag) 1,000 ml @ 1,000 mls/hr Q1H IV Last administered on 08/10/16 15:25; Start 08/10/16 at 14:56; Stop at 15:55; Status DC Vancomycin HCl (Vanco Per Pharmacy) 1 each PRN DAILY PRN MC SEE COMMENTS Last administered on 08/12/16 05:57; Start 08/10/16 at 15:00 Piperacillin Sod/ Tazobactam Sod 1 each 1 each PRN DAILY PRN MC SEE COMMENTS; Start 08/10/16 at 15:00 Vancomycin HCl 2 gm/Sodium Chloride 500 ml @ 250 mls/hr 1X ONCE IV Last administered on 08/10/16 16:07; Start 08/10/16 at 15:45; Stop 08/10/16 at 17:44 ; Status DC Piperacillin Sod/ Tazobactam Sod/ Sodium Chloride (Zosyn/Iv Sodium Chloride 0.9 % 50ml) 50 ml @ 100 mls/hr 1X ONCE IV Last administered on 08/10/16 15:25; Start 08/10/16 at 15:15; Stop 08/10/16 at 15:44; Status DC Ondansetron HCl (Zofran) 4 mg PRN Q8HRS PRN IV NAUSEA/VOMITING Last administered on 08/10/16 19:27; Start 08/10/16 at 15:15; Stop 08/11/16 at 15:14 ; Status DC Morphine Sulfate 4 mg 4 mg PRN Q2HR PRN IV PAIN; Start 08/10/16 at 15:15; Stop 08/11/16 at 15:14; Status DC Sodium Chloride (Iv Sodium Chloride 0.9% 1000ml Bag) 1,000 ml @ 150 mls/hr Q6H40M IV ; Start 08/10/16 at 15:05; Stop 08/11/16 at 15:04; Status DC Acetaminophen 650 mg 650 mg PRN Q4HRS PRN PO FEVER; Start 08/10/16 at 15:15; Stop 08/10/16 at 17:02; Status DC Piperacillin Sod/ Tazobactam Sod 3.375 gm/Sodium Chloride 50 ml @ 100 mls/hr Q6HRS IV Last administered on 08/12/16 07:37; Start 08/11/16 at 00:00 Sodium Chloride 1,000 ml @ 1,000 mls/hr 1X ONCE IV Last administered on 17:50; Start 08/10/16 at 16:00; Stop 08/10/16 at 16:59; Status DC Vancomycin HCl/ Sodium Chloride (Iv Sodium Chloride 0.9% 500ml Bag) 500 ml @ 250 mls/hr Q12H IV Last administered on 08/11/16 15:12; Start 08/11/16 at 04: 00; Stop 08/12/16 at 04:23; Status DC Vancomycin HCl 1 each 1X ONCE MC ; Start 08/12/16 at 03:30; Stop 08/12/16 at 03 :31; Status DC Vancomycin HCl (Vanco Per Pharmacy) 1 each PRN DAILY PRN MC SEE COMMENTS; Start 08/10/16 at 16:45; Status UNV Acetaminophen (Tylenol) 650 mg PRN Q4HRS PRN PO MILD PAIN / TEMP Last administered on 08/11/16 21:49; Start 08/10/16 at 16:45 Acetaminophen/ Hydrocodone Bitart (Lortab 5/325) 1 tab PRN Q4HRS PRN PO PAIN; Start 08/10/16 at 16:45 Amlodipine Besylate (Norvasc) 5 mg DAILY PO Last administered on 08/11/16 08: 37; Start 08/11/16 at 09:00; Stop 08/11/16 at 10:29; Status DC Atorvastatin Calcium (Lipitor) 20 mg QHS PO Last administered on 08/11/16 21: 49; Start 08/10/16 at 21:00 Multivitamins (Thera M Plus) 1 tab DAILY PO Last administered on 08/11/16 08: 37; Start 08/11/16 at 09:00 Naproxen (Naprosyn) 500 mg PRN BID PRN PO PAIN Last administered on 08/11/16 02:39; Start 08/10/16 at 16:45; Stop 08/11/16 at 10:29; Status DC Ropinirole HCl 2 mg 2 mg DAILY@19 PO Last administered on 08/11/16 19:55; Start 08/10/16 at 19:00 Potassium Chloride/Sodium Chloride (KCl 20 Meq-0.45% Nacl) 1,000 ml @ 75 mls/ hr [id number] IV Last administered on 08/11/16 09:11; Start 08/10/16 at 18:00; Stop 08/11/16 at 10:29; Status DC Potassium Chloride (Klor-Con) 20 meq 1X ONCE PO Last administered on 18:07; Start 08/10/16 at 17:30; Stop 08/10/16 at 17:31; Status DC Enoxaparin Sodium (Lovenox 40mg Syringe) 40 mg Q24H SQ Last administered on 21:50; Start 08/10/16 at 21:00 Multi-Ingred Cream/Lotion/Oil/ Oint (Hydrocerin) 1 moy BID TP Last administered on 08/11/16 21:50; Start 08/11/16 at 11:00 Clindamycin HCl 300 mg 300 mg TID PO Last administered on 08/11/16 21:49; Start 08/11/16 at 15:00 Vancomycin HCl/ Sodium Chloride (Iv Sodium Chloride 0.9% 500ml Bag) 500 ml @ 250 mls/hr Q12H IV Last administered on 08/12/16 04:55; Start 08/12/16 at 04: 30 Vancomycin HCl 1 each 1X ONCE MC ; Start 08/13/16 at 16:00; Stop 08/13/16 at 16 :01 Active Scripts Active Requip (Ropinirole Hcl) 1 Mg Tablet 2 Mg PO Q24H Atorvastatin Calcium 20 Mg Tablet 20 Mg PO QHS Amlodipine Besylate 5 Mg Tablet 5 Mg PO DAILY Reported Aspir 81 (Aspirin) 81 Mg Tablet.dr 1 Tab PO DAILY Multivitamins (Multivitamin) 1 Each Tablet 1 Tab PO DAILY Ibuprofen 400 Mg Tablet 200 Mg PO PRN Q6HRS PRN Naproxen 500 Mg Tablet 1 Tab PO Q6HRS PRN Tricor (Fenofibrate Nanocrystallized) 48 Mg Tablet 1 Tab PO DAILY Vitals/I & O Vital Sign - Last 24 Hours 08/11/16 08/11/16 08/11/16 08/11/16 11:00 15:00 19:00 19:55 Temp 99.1 97.5 100.6 99.1 97.5 100.6 Pulse 111 109 114 Resp 16 16 24 B/P 112/79 119/77 140/78 Pulse Ox 92 94 93 O2 Delivery Room Air Room Air Room Air Room Air 08/11/16 08/12/16 23:00 03:00 Temp 99.3 97.9 99.3 97.9 Pulse 118 107 Resp 24 24 B/P 139/79 124/73 Pulse Ox 93 93 O2 Delivery Room Air Room Air Intake and Output 08/11/16 08/11/16 08/12/16 15:00 23:00 07:00 Intake Total 600 ml 50 ml Output Total 600 ml 1200 ml 1300 ml Balance -600 ml -600 ml -1250 ml GERDA HUMPHRIES MD Aug 12, 2016 08:42
[2016-08-12] MEDS: CLINDAMYCIN HCL 150 MG CAPSULE. PO SCH ×3 (09:41→19:57)
[2016-08-12] MEDS: MULTIVITAMIN with MINERAL TABLET. PO SCH (09:41)
[2016-08-12] MEDS: MINERAL OIL/PETROLATUM TOPICAL CREAM 113GM JAR. TP SCH ×2 (09:41→20:03)
[2016-08-12 11:00] VITALS: BP 138/76
--- NOTE | 2016-08-12 11:25 | PDOC ---
Infectious Disease Note Subjective Subjective Feels about the same ROS ROS GEN: Denies sweats HEENT: Denies blurred vision, sore throat CV: Denies chest pain RESP: Denies shortness of air, cough GI: Denies n/v/d NEURO: Denies confusion, dizziness MSK: Denies weakness, joint pain/swelling Vital Sign Vital Signs Vital Signs Date Time Temp Pulse Resp B/P Pulse Ox O2 Delivery O2 Flow Rate FiO2 08/12/16 03:00 97.9 107 24 124/73 93 Room Air 97.9 Physical Exam PHYSICAL EXAM GENERAL: NAD, Alert HEENT: PERRL, OC/OP -clear NECK: Supple, no JVD, no LN LUNGS: Clear HEART: S1S2, no gallop, no murmur ABD: Soft, NT, no organomegaly, no rebound,obese EXT: RLE with 1 to 2 plus edema, no cyanosis. 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 SKIN: No rash IV: ok Labs Lab Laboratory Tests Test 08/12/16 03:10 White Blood Count 9.2x10^3/uL (4.0-11.0) Red Blood Count 4.09x10^6/uL (4.30-5.70) Hemoglobin 12.8g/dL (13.0-17.5) Hematocrit 36.3% (39.0-53.0) Mean Corpuscular Volume 89fL (79-100) Mean Corpuscular Hemoglobin 31pg (25-35) Mean Corpuscular Hemoglobin Concent 35g/dL (31-37) Red Cell Distribution Width 13.1% (11.5-14.5) Platelet Count 153x10^3/uL (140-400) Neutrophils (%) (Auto) 71% (31-73) Lymphocytes (%) (Auto) 21% (24-48) Monocytes (%) (Auto) 7% (0-9) Eosinophils (%) (Auto) 1% (0-3) Basophils (%) (Auto) 0% (0-3) Neutrophils # (Auto) 6.6x10^3uL (1.8-7.7) Lymphocytes # (Auto) 1.9x10^3/uL (1.0-4.8) Monocytes # (Auto) 0.6x10^3/uL (0.0-1.1) Eosinophils # (Auto) 0.1x10^3/uL (0.0-0.7) Basophils # (Auto) 0.0x10^3/uL (0.0-0.2) Sodium Level 139mmol/L (136-145) Potassium Level 4.0mmol/L (3.5-5.1) Chloride Level 106mmol/L (98-107) Carbon Dioxide Level 25mmol/L (21-32) Anion Gap 8 (6-14) Blood Urea Nitrogen 10mg/dL (8-26) Creatinine 0.9mg/dL (0.7-1.3) Estimated GFR (Cockcroft-Gault) 87.6 Glucose Level 105mg/dL (70-99) Calcium Level 7.8mg/dL (8.5-10.1) Vancomycin Level Trough 8.2mcg/mL (10.0-20.0) Vancomycin Last Dose Date 08/11/16 Vancomycin Last Dose Time 1600 Objective Assessment Recurrent cellulitis of RLE w/ rapid onset Fever Leukocytosis Lactic acidosis HTN Plan Plan of Care D/c Vanc and Zosyn Cefazolin Monitor response, f/u am labs and cultures Leg elevation PALMIRA CISNEROS MD Aug 12, 2016 11:25
[2016-08-12 15:00] VITALS: BP 143/82
[2016-08-12 19:36] VITALS: BP 122/80
[2016-08-12] MEDS: rOPINIRole 1 MG TABLET. PO SCH (19:58)
[2016-08-12] MEDS: ATORVASTATIN CALCIUM 20 MG TABLET PO SCH (19:58)
[2016-08-12] MEDS: ENOXAPARIN 40 MG/0.4 ML SYRINGE. SQ SCH (19:58)
[2016-08-12] MEDS: ACETAMINOPHEN 325 MG TABLET. PO PRN (20:03)
[2016-08-12] MEDS: HYDROCODONE/APAP 5/325MG TABLET. PO PRN (21:42)
[2016-08-12 23:02] VITALS: BP 132/77
[2016-08-13 03:51] VITALS: BP 119/86
[2016-08-13 07:00] VITALS: BP 118/82
[2016-08-13 07:13] LABS: BASO % 1 % (0-3); EOS % 2 % (0-3); HEMATOCRIT 39.2 % (39.0-53.0); HEMOGLOBIN 13.4 g/dL (13.0-17.5); LYMPH # 2.3 x10^3/uL (1.0-4.8); LYMPH % 26 % (24-48); MEAN CORPUSCULAR HEMOGLOBIN 31 pg (25-35); MEAN CORPUSCULAR HGB CONC 34 g/dL (31-37); MEAN CORPUSCULAR VOLUME 90 fL (79-100); MONO % 9 % (0-9); NEUT % 63 % (31-73); PLATELET COUNT 205 x10^3/uL (140-400); RED BLOOD COUNT 4.36 x10^6/uL (4.30-5.70); RED CELL DISTRIBUTION WIDTH 13.2 % (11.5-14.5); WHITE BLOOD COUNT 8.9 x10^3/uL (4.0-11.0)
[2016-08-13 07:24] LABS: CALCIUM 8.7 mg/dL (8.5-10.1); GFR 77.6; POTASSIUM 3.7 mmol/L (3.5-5.1)
[2016-08-13] MEDS: CLINDAMYCIN HCL 150 MG CAPSULE. PO SCH (08:22)
[2016-08-13] MEDS: MULTIVITAMIN with MINERAL TABLET. PO SCH (08:23)
--- NOTE | 2016-08-13 09:02 | PDOC ---
PROGRESS NOTES Subjective Subjective lab reviewed. discussed with dr. Neil. feels better. afebrile. had a loose stool yesterday. Objective Objective Vital Signs Date Time Temp Pulse Resp B/P Pulse Ox O2 Delivery O2 Flow Rate FiO2 08/13/16 03:51 98.7 99 18 119/86 96 Room Air 98.7 Intake and Output 08/13/16 06:59 Intake Total 3420 ml Output Total 1550 ml Balance 1870 ml Intake Oral 3420 ml Output Urine Total 1550 ml # Voids 1 Physical Exam Abdomen: Soft Heart: Regular rate, Normal S1, Normal S2 Extremities: Other (trace edema RLE) General: Alert HEENT: Atraumatic Lungs: Clear to auscultation Neuro: Normal speech Psych/Mental Status: Mental status NL Skin: Other (erythema right thigh and calf feeding. still with redness and ecchymosis and tenderness right pretibial area.) Assessment Assessment Problems Medical Problems:1. Cellulitis of the right leg, which is recurrent. improving 2. Sepsis.resolved 3. Leukocytosis. resolved 4. Hypokalemia. resolved 5. Hypertension. okay off of amlodipine 6. Hyperlipidemia. 7. Restless legs syndrome. (1) Cellulitis Status: Acute (2) Sepsis Status: Acute Plan Plan of Care continue iv cefazolin and oral clindamycin per ID leg elevation Comment Review of Relevant I have reviewed the following items amado (where applicable) has been applied. Labs Laboratory Tests Test 08/12/16 03:10 08/13/16 06:55 White Blood Count 9.2x10^3/uL (4.0-11.0) 8.9x10^3/uL (4.0-11.0) Red Blood Count 4.09x10^6/uL (4.30-5.70) 4.36x10^6/uL (4.30-5.70) Hemoglobin 12.8g/dL (13.0-17.5) 13.4g/dL (13.0-17.5) Hematocrit 36.3% (39.0-53.0) 39.2% (39.0-53.0) Mean Corpuscular Volume 89fL (79-100) 90fL (79-100) Mean Corpuscular Hemoglobin 31pg (25-35) 31pg (25-35) Mean Corpuscular Hemoglobin Concent 35g/dL (31-37) 34g/dL (31-37) Red Cell Distribution Width 13.1% (11.5-14.5) 13.2% (11.5-14.5) Platelet Count 153x10^3/uL (140-400) 205x10^3/uL (140-400) Neutrophils (%) (Auto) 71% (31-73) 63% (31-73) Lymphocytes (%) (Auto) 21% (24-48) 26% (24-48) Monocytes (%) (Auto) 7% (0-9) 9% (0-9) Eosinophils (%) (Auto) 1% (0-3) 2% (0-3) Basophils (%) (Auto) 0% (0-3) 1% (0-3) Neutrophils # (Auto) 6.6x10^3uL (1.8-7.7) 5.6x10^3uL (1.8-7.7) Lymphocytes # (Auto) 1.9x10^3/uL (1.0-4.8) 2.3x10^3/uL (1.0-4.8) Monocytes # (Auto) 0.6x10^3/uL (0.0-1.1) 0.8x10^3/uL (0.0-1.1) Eosinophils # (Auto) 0.1x10^3/uL (0.0-0.7) 0.2x10^3/uL (0.0-0.7) Basophils # (Auto) 0.0x10^3/uL (0.0-0.2) 0.0x10^3/uL (0.0-0.2) Sodium Level 139mmol/L (136-145) 137mmol/L (136-145) Potassium Level 4.0mmol/L (3.5-5.1) 3.7mmol/L (3.5-5.1) Chloride Level 106mmol/L (98-107) 102mmol/L (98-107) Carbon Dioxide Level 25mmol/L (21-32) 27mmol/L (21-32) Anion Gap 8 (6-14) 8 (6-14) Blood Urea Nitrogen 10mg/dL (8-26) 12mg/dL (8-26) Creatinine 0.9mg/dL (0.7-1.3) 1.0mg/dL (0.7-1.3) Estimated GFR (Cockcroft-Gault) 87.6 77.6 Glucose Level 105mg/dL (70-99) 101mg/dL (70-99) Calcium Level 7.8mg/dL (8.5-10.1) 8.7mg/dL (8.5-10.1) Vancomycin Level Trough 8.2mcg/mL (10.0-20.0) Vancomycin Last Dose Date 08/11/16 Vancomycin Last Dose Time 1600 Laboratory Tests Test 08/13/16 06:55 White Blood Count 8.9x10^3/uL (4.0-11.0) Red Blood Count 4.36x10^6/uL (4.30-5.70) Hemoglobin 13.4g/dL (13.0-17.5) Hematocrit 39.2% (39.0-53.0) Mean Corpuscular Volume 90fL (79-100) Mean Corpuscular Hemoglobin 31pg (25-35) Mean Corpuscular Hemoglobin Concent 34g/dL (31-37) Red Cell Distribution Width 13.2% (11.5-14.5) Platelet Count 205x10^3/uL (140-400) Neutrophils (%) (Auto) 63% (31-73) Lymphocytes (%) (Auto) 26% (24-48) Monocytes (%) (Auto) 9% (0-9) Eosinophils (%) (Auto) 2% (0-3) Basophils (%) (Auto) 1% (0-3) Neutrophils # (Auto) 5.6x10^3uL (1.8-7.7) Lymphocytes # (Auto) 2.3x10^3/uL (1.0-4.8) Monocytes # (Auto) 0.8x10^3/uL (0.0-1.1) Eosinophils # (Auto) 0.2x10^3/uL (0.0-0.7) Basophils # (Auto) 0.0x10^3/uL (0.0-0.2) Sodium Level 137mmol/L (136-145) Potassium Level 3.7mmol/L (3.5-5.1) Chloride Level 102mmol/L (98-107) Carbon Dioxide Level 27mmol/L (21-32) Anion Gap 8 (6-14) Blood Urea Nitrogen 12mg/dL (8-26) Creatinine 1.0mg/dL (0.7-1.3) Estimated GFR (Cockcroft-Gault) 77.6 Glucose Level 101mg/dL (70-99) Calcium Level 8.7mg/dL (8.5-10.1) Microbiology 08/10/16 Blood Culture - Preliminary, Resulted NO GROWTH AFTER 2 DAYS Medications Current Medications Fentanyl Citrate 75 mcg 75 mcg PRN Q15MIN PRN IV PAIN GREATER THAN 3/10 Last administered on 08/10/16 15:25; Start 08/10/16 at 15:00; Stop 08/11/16 at 14:59 ; Status DC Sodium Chloride (Iv Sodium Chloride 0.9% 1000ml Bag) 1,000 ml @ 1,000 mls/hr Q1H IV Last administered on 08/10/16 15:25; Start 08/10/16 at 14:56; Stop at 15:55; Status DC Vancomycin HCl (Vanco Per Pharmacy) 1 each PRN DAILY PRN MC SEE COMMENTS Last administered on 08/12/16 05:57; Start 08/10/16 at 15:00; Stop 08/12/16 at 11:24 ; Status DC Piperacillin Sod/ Tazobactam Sod 1 each 1 each PRN DAILY PRN MC SEE COMMENTS; Start 08/10/16 at 15:00; Stop 08/12/16 at 12:17; Status DC Vancomycin HCl 2 gm/Sodium Chloride 500 ml @ 250 mls/hr 1X ONCE IV Last administered on 08/10/16 16:07; Start 08/10/16 at 15:45; Stop 08/10/16 at 17:44 ; Status DC Piperacillin Sod/ Tazobactam Sod/ Sodium Chloride (Zosyn/Iv Sodium Chloride 0.9 % 50ml) 50 ml @ 100 mls/hr 1X ONCE IV Last administered on 08/10/16 15:25; Start 08/10/16 at 15:15; Stop 08/10/16 at 15:44; Status DC Ondansetron HCl (Zofran) 4 mg PRN Q8HRS PRN IV NAUSEA/VOMITING Last administered on 08/10/16 19:27; Start 08/10/16 at 15:15; Stop 08/11/16 at 15:14 ; Status DC Morphine Sulfate 4 mg 4 mg PRN Q2HR PRN IV PAIN; Start 08/10/16 at 15:15; Stop 08/11/16 at 15:14; Status DC Sodium Chloride (Iv Sodium Chloride 0.9% 1000ml Bag) 1,000 ml @ 150 mls/hr Q6H40M IV ; Start 08/10/16 at 15:05; Stop 08/11/16 at 15:04; Status DC Acetaminophen 650 mg 650 mg PRN Q4HRS PRN PO FEVER; Start 08/10/16 at 15:15; Stop 08/10/16 at 17:02; Status DC Piperacillin Sod/ Tazobactam Sod 3.375 gm/Sodium Chloride 50 ml @ 100 mls/hr Q6HRS IV Last administered on 08/12/16 07:37; Start 08/11/16 at 00:00; Stop at 11:24; Status DC Sodium Chloride 1,000 ml @ 1,000 mls/hr 1X ONCE IV Last administered on 17:50; Start 08/10/16 at 16:00; Stop 08/10/16 at 16:59; Status DC Vancomycin HCl/ Sodium Chloride (Iv Sodium Chloride 0.9% 500ml Bag) 500 ml @ 250 mls/hr Q12H IV Last administered on 08/11/16 15:12; Start 08/11/16 at 04: 00; Stop 08/12/16 at 04:23; Status DC Vancomycin HCl 1 each 1X ONCE MC ; Start 08/12/16 at 03:30; Stop 08/12/16 at 03 :31; Status DC Vancomycin HCl (Vanco Per Pharmacy) 1 each PRN DAILY PRN MC SEE COMMENTS; Start 08/10/16 at 16:45; Status UNV Acetaminophen (Tylenol) 650 mg PRN Q4HRS PRN PO MILD PAIN / TEMP Last administered on 08/12/16 20:03; Start 08/10/16 at 16:45 Acetaminophen/ Hydrocodone Bitart (Lortab 5/325) 1 tab PRN Q4HRS PRN PO MODERATE - SEVERE PAIN Last administered on 08/12/16 21:42; Start 08/10/16 at 16:45 Amlodipine Besylate (Norvasc) 5 mg DAILY PO Last administered on 08/11/16 08: 37; Start 08/11/16 at 09:00; Stop 08/11/16 at 10:29; Status DC Atorvastatin Calcium (Lipitor) 20 mg QHS PO Last administered on 08/12/16 19: 58; Start 08/10/16 at 21:00 Multivitamins (Thera M Plus) 1 tab DAILY PO Last administered on 08/13/16 08: 23; Start 08/11/16 at 09:00 Naproxen (Naprosyn) 500 mg PRN BID PRN PO PAIN Last administered on 08/11/16 02:39; Start 08/10/16 at 16:45; Stop 08/11/16 at 10:29; Status DC Ropinirole HCl 2 mg 2 mg DAILY@19 PO Last administered on 08/12/16 19:58; Start 08/10/16 at 19:00 Potassium Chloride/Sodium Chloride (KCl 20 Meq-0.45% Nacl) 1,000 ml @ 75 mls/ hr [id number] IV Last administered on 08/11/16 09:11; Start 08/10/16 at 18:00; Stop 08/11/16 at 10:29; Status DC Potassium Chloride (Klor-Con) 20 meq 1X ONCE PO Last administered on 18:07; Start 08/10/16 at 17:30; Stop 08/10/16 at 17:31; Status DC Enoxaparin Sodium (Lovenox 40mg Syringe) 40 mg Q24H SQ Last administered on 19:58; Start 08/10/16 at 21:00 Multi-Ingred Cream/Lotion/Oil/ Oint (Hydrocerin) 1 moy BID TP Last administered on 08/12/16 20:03; Start 08/11/16 at 11:00 Clindamycin HCl 300 mg 300 mg TID PO Last administered on 08/13/16 08:22; Start 08/11/16 at 15:00 Vancomycin HCl/ Sodium Chloride (Iv Sodium Chloride 0.9% 500ml Bag) 500 ml @ 250 mls/hr Q12H IV Last administered on 08/12/16 04:55; Start 08/12/16 at 04: 30; Stop 08/12/16 at 11:24; Status DC Vancomycin HCl 1 each 1 each 1X ONCE MC ; Start 08/13/16 at 16:00; Stop at 16:00; Status DC Cefazolin Sodium 2 gm/Sodium Chloride 50 ml @ 100 mls/hr Q8HRS IV ; Start 08/12 at 12:00; Stop 08/12/16 at 12:00; Status DC Cefazolin Sodium/ Dextrose (Ancef 2gm Premix) 50 ml @ 100 mls/hr Q8HRS IV Last administered on 08/13/16 05:16; Start 08/12/16 at 12:00 Active Scripts Active Requip (Ropinirole Hcl) 1 Mg Tablet 2 Mg PO Q24H Atorvastatin Calcium 20 Mg Tablet 20 Mg PO QHS Amlodipine Besylate 5 Mg Tablet 5 Mg PO DAILY Reported Aspir 81 (Aspirin) 81 Mg Tablet.dr 1 Tab PO DAILY Multivitamins (Multivitamin) 1 Each Tablet 1 Tab PO DAILY Ibuprofen 400 Mg Tablet 200 Mg PO PRN Q6HRS PRN Naproxen 500 Mg Tablet 1 Tab PO Q6HRS PRN Tricor (Fenofibrate Nanocrystallized) 48 Mg Tablet 1 Tab PO DAILY Vitals/I & O Vital Sign - Last 24 Hours 08/12/16 08/12/16 08/12/16 08/12/16 11:00 15:00 19:36 20:00 Temp 98.1 98.1 98.1 98.1 98.1 98.1 Pulse 89 90 109 Resp 20 20 20 B/P 138/76 143/82 122/80 Pulse Ox 95 95 96 O2 Delivery Room Air Room Air Room Air Room Air 08/12/16 08/12/16 08/12/16 08/13/16 21:42 22:42 23:02 03:51 Temp 99.1 98.7 99.1 98.7 Pulse 110 99 Resp 18 18 20 18 B/P 132/77 119/86 Pulse Ox 96 94 94 96 O2 Delivery Room Air Room Air Room Air Room Air Intake and Output 08/12/16 08/12/16 08/13/16 14:59 22:59 06:59 Intake Total 600 ml 1500 ml 1320 ml Output Total 1050 ml 500 ml Balance 600 ml 450 ml 820 ml GERDA HUMPHRIES MD Aug 13, 2016 09:02
[2016-08-13] MEDS ORDERED: rOPINIRole 1 MG TABLET. PO ONE (09:30)
--- NOTE | 2016-08-13 10:33 | PDOC ---
Infectious Disease Note Subjective Subjective Better. Less swelling and pain ROS ROS GEN: Denies fevers, chills, sweats HEENT: Denies blurred vision, sore throat CV: Denies chest pain RESP: Denies shortness of air, cough GI: Denies n/v/d NEURO: Denies confusion, dizziness MSK: Denies weakness, joint pain/swelling Vital Sign Vital Signs Vital Signs Date Time Temp Pulse Resp B/P Pulse Ox O2 Delivery O2 Flow Rate FiO2 08/13/16 07:00 97.7 90 18 118/82 94 Room Air 97.7 Physical Exam PHYSICAL EXAM GENERAL: NAD, Alert, coop. 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 x 3, no focal neurologic deficit SKIN: No rash IV: ok Labs Lab Laboratory Tests Test 08/13/16 06:55 White Blood Count 8.9x10^3/uL (4.0-11.0) Red Blood Count 4.36x10^6/uL (4.30-5.70) Hemoglobin 13.4g/dL (13.0-17.5) Hematocrit 39.2% (39.0-53.0) Mean Corpuscular Volume 90fL (79-100) Mean Corpuscular Hemoglobin 31pg (25-35) Mean Corpuscular Hemoglobin Concent 34g/dL (31-37) Red Cell Distribution Width 13.2% (11.5-14.5) Platelet Count 205x10^3/uL (140-400) Neutrophils (%) (Auto) 63% (31-73) Lymphocytes (%) (Auto) 26% (24-48) Monocytes (%) (Auto) 9% (0-9) Eosinophils (%) (Auto) 2% (0-3) Basophils (%) (Auto) 1% (0-3) Neutrophils # (Auto) 5.6x10^3uL (1.8-7.7) Lymphocytes # (Auto) 2.3x10^3/uL (1.0-4.8) Monocytes # (Auto) 0.8x10^3/uL (0.0-1.1) Eosinophils # (Auto) 0.2x10^3/uL (0.0-0.7) Basophils # (Auto) 0.0x10^3/uL (0.0-0.2) Sodium Level 137mmol/L (136-145) Potassium Level 3.7mmol/L (3.5-5.1) Chloride Level 102mmol/L (98-107) Carbon Dioxide Level 27mmol/L (21-32) Anion Gap 8 (6-14) Blood Urea Nitrogen 12mg/dL (8-26) Creatinine 1.0mg/dL (0.7-1.3) Estimated GFR (Cockcroft-Gault) 77.6 Glucose Level 101mg/dL (70-99) Calcium Level 8.7mg/dL (8.5-10.1) Objective Assessment Recurrent cellulitis of RLE w/ rapid onset - much better Fever - resolved Leukocytosis - better Lactic acidosis HTN Plan Plan of Care Cont Cefazolin given improvement in last 24 hours Monitor response, f/u am labs and cultures Leg elevation D/w PALMIRA Martinez MD Aug 13, 2016 10:33
[2016-08-13] MEDS: MINERAL OIL/PETROLATUM TOPICAL CREAM 113GM JAR. TP SCH ×2 (10:42→20:21)
[2016-08-13 11:00] VITALS: BP 121/72
[2016-08-13 15:00] VITALS: BP 127/71
[2016-08-13 19:00] VITALS: BP 126/81
[2016-08-13] MEDS: ATORVASTATIN CALCIUM 20 MG TABLET PO SCH (20:20)
[2016-08-13] MEDS: rOPINIRole 1 MG TABLET. PO SCH (20:20)
[2016-08-13] MEDS: ACETAMINOPHEN 325 MG TABLET. PO PRN (20:20)
[2016-08-13] MEDS: ENOXAPARIN 40 MG/0.4 ML SYRINGE. SQ SCH (20:21)
[2016-08-13 23:00] VITALS: BP 115/77
[2016-08-14 03:00] VITALS: BP 126/93
[2016-08-14 07:15] VITALS: BP 135/88
[2016-08-14] MEDS: MULTIVITAMIN with MINERAL TABLET. PO SCH (07:49)
[2016-08-14] MEDS: MINERAL OIL/PETROLATUM TOPICAL CREAM 113GM JAR. TP SCH ×2 (07:56→21:34)
--- NOTE | 2016-08-14 09:01 | PDOC ---
PROGRESS NOTES Subjective Subjective feels better. afebrile. less pain right leg. Objective Objective Vital Signs Date Time Temp Pulse Resp B/P Pulse Ox O2 Delivery O2 Flow Rate FiO2 08/14/16 03:00 97.9 96 20 126/93 94 Room Air 97.9 Intake and Output 08/14/16 07:00 Intake Total 2580 ml Balance 2580 ml Intake Oral 2580 ml # Voids 10 Physical Exam Abdomen: Soft Heart: Regular rate, Normal S1, Normal S2 Extremities: No edema General: Alert HEENT: Atraumatic Lungs: Clear to auscultation Neuro: Normal speech Psych/Mental Status: Mental status NL Skin: Other (less erythema and tenderness and ecchymosis right pretibial area. ) Assessment Assessment Problems Medical Problems:. Cellulitis of the right leg, which is recurrent. improving 2. Sepsis.resolved 3. Leukocytosis. resolved 4. Hypokalemia. resolved 5. Hypertension. okay off of amlodipine 6. Hyperlipidemia. 7. Restless legs syndrome. (1) Cellulitis Status: Acute (2) Sepsis Status: Acute Plan Plan of Care continue iv cefazolin leg elevation Comment Review of Relevant I have reviewed the following items amado (where applicable) has been applied. Labs Laboratory Tests Test 08/13/16 06:55 White Blood Count 8.9x10^3/uL (4.0-11.0) Red Blood Count 4.36x10^6/uL (4.30-5.70) Hemoglobin 13.4g/dL (13.0-17.5) Hematocrit 39.2% (39.0-53.0) Mean Corpuscular Volume 90fL (79-100) Mean Corpuscular Hemoglobin 31pg (25-35) Mean Corpuscular Hemoglobin Concent 34g/dL (31-37) Red Cell Distribution Width 13.2% (11.5-14.5) Platelet Count 205x10^3/uL (140-400) Neutrophils (%) (Auto) 63% (31-73) Lymphocytes (%) (Auto) 26% (24-48) Monocytes (%) (Auto) 9% (0-9) Eosinophils (%) (Auto) 2% (0-3) Basophils (%) (Auto) 1% (0-3) Neutrophils # (Auto) 5.6x10^3uL (1.8-7.7) Lymphocytes # (Auto) 2.3x10^3/uL (1.0-4.8) Monocytes # (Auto) 0.8x10^3/uL (0.0-1.1) Eosinophils # (Auto) 0.2x10^3/uL (0.0-0.7) Basophils # (Auto) 0.0x10^3/uL (0.0-0.2) Sodium Level 137mmol/L (136-145) Potassium Level 3.7mmol/L (3.5-5.1) Chloride Level 102mmol/L (98-107) Carbon Dioxide Level 27mmol/L (21-32) Anion Gap 8 (6-14) Blood Urea Nitrogen 12mg/dL (8-26) Creatinine 1.0mg/dL (0.7-1.3) Estimated GFR (Cockcroft-Gault) 77.6 Glucose Level 101mg/dL (70-99) Calcium Level 8.7mg/dL (8.5-10.1) Microbiology 08/10/16 Blood Culture - Preliminary, Resulted NO GROWTH AFTER 3 DAYS Medications Current Medications Fentanyl Citrate 75 mcg 75 mcg PRN Q15MIN PRN IV PAIN GREATER THAN 3/10 Last administered on 08/10/16 15:25; Start 08/10/16 at 15:00; Stop 08/11/16 at 14:59 ; Status DC Sodium Chloride (Iv Sodium Chloride 0.9% 1000ml Bag) 1,000 ml @ 1,000 mls/hr Q1H IV Last administered on 08/10/16 15:25; Start 08/10/16 at 14:56; Stop at 15:55; Status DC Vancomycin HCl (Vanco Per Pharmacy) 1 each PRN DAILY PRN MC SEE COMMENTS Last administered on 08/12/16 05:57; Start 08/10/16 at 15:00; Stop 08/12/16 at 11:24 ; Status DC Piperacillin Sod/ Tazobactam Sod 1 each 1 each PRN DAILY PRN MC SEE COMMENTS; Start 08/10/16 at 15:00; Stop 08/12/16 at 12:17; Status DC Vancomycin HCl 2 gm/Sodium Chloride 500 ml @ 250 mls/hr 1X ONCE IV Last administered on 08/10/16 16:07; Start 08/10/16 at 15:45; Stop 08/10/16 at 17:44 ; Status DC Piperacillin Sod/ Tazobactam Sod/ Sodium Chloride (Zosyn/Iv Sodium Chloride 0.9 % 50ml) 50 ml @ 100 mls/hr 1X ONCE IV Last administered on 08/10/16 15:25; Start 08/10/16 at 15:15; Stop 08/10/16 at 15:44; Status DC Ondansetron HCl (Zofran) 4 mg PRN Q8HRS PRN IV NAUSEA/VOMITING Last administered on 08/10/16 19:27; Start 08/10/16 at 15:15; Stop 08/11/16 at 15:14 ; Status DC Morphine Sulfate 4 mg 4 mg PRN Q2HR PRN IV PAIN; Start 08/10/16 at 15:15; Stop 08/11/16 at 15:14; Status DC Sodium Chloride (Iv Sodium Chloride 0.9% 1000ml Bag) 1,000 ml @ 150 mls/hr Q6H40M IV ; Start 08/10/16 at 15:05; Stop 08/11/16 at 15:04; Status DC Acetaminophen 650 mg 650 mg PRN Q4HRS PRN PO FEVER; Start 08/10/16 at 15:15; Stop 08/10/16 at 17:02; Status DC Piperacillin Sod/ Tazobactam Sod 3.375 gm/Sodium Chloride 50 ml @ 100 mls/hr Q6HRS IV Last administered on 08/12/16 07:37; Start 08/11/16 at 00:00; Stop at 11:24; Status DC Sodium Chloride 1,000 ml @ 1,000 mls/hr 1X ONCE IV Last administered on 17:50; Start 08/10/16 at 16:00; Stop 08/10/16 at 16:59; Status DC Vancomycin HCl/ Sodium Chloride (Iv Sodium Chloride 0.9% 500ml Bag) 500 ml @ 250 mls/hr Q12H IV Last administered on 08/11/16 15:12; Start 08/11/16 at 04: 00; Stop 08/12/16 at 04:23; Status DC Vancomycin HCl 1 each 1X ONCE MC ; Start 08/12/16 at 03:30; Stop 08/12/16 at 03 :31; Status DC Vancomycin HCl (Vanco Per Pharmacy) 1 each PRN DAILY PRN MC SEE COMMENTS; Start 08/10/16 at 16:45; Status UNV Acetaminophen (Tylenol) 650 mg PRN Q4HRS PRN PO MILD PAIN / TEMP Last administered on 08/13/16 20:20; Start 08/10/16 at 16:45 Acetaminophen/ Hydrocodone Bitart (Lortab 5/325) 1 tab PRN Q4HRS PRN PO MODERATE - SEVERE PAIN Last administered on 08/12/16 21:42; Start 08/10/16 at 16:45 Amlodipine Besylate (Norvasc) 5 mg DAILY PO Last administered on 08/11/16 08: 37; Start 08/11/16 at 09:00; Stop 08/11/16 at 10:29; Status DC Atorvastatin Calcium (Lipitor) 20 mg QHS PO Last administered on 08/13/16 20: 20; Start 08/10/16 at 21:00 Multivitamins (Thera M Plus) 1 tab DAILY PO Last administered on 08/14/16 07: 49; Start 08/11/16 at 09:00 Naproxen (Naprosyn) 500 mg PRN BID PRN PO PAIN Last administered on 08/11/16 02:39; Start 08/10/16 at 16:45; Stop 08/11/16 at 10:29; Status DC Ropinirole HCl 2 mg 2 mg DAILY@19 PO Last administered on 08/13/16 20:20; Start 08/10/16 at 19:00 Potassium Chloride/Sodium Chloride (KCl 20 Meq-0.45% Nacl) 1,000 ml @ 75 mls/ hr [id number] IV Last administered on 08/11/16 09:11; Start 08/10/16 at 18:00; Stop 08/11/16 at 10:29; Status DC Potassium Chloride (Klor-Con) 20 meq 1X ONCE PO Last administered on 18:07; Start 08/10/16 at 17:30; Stop 08/10/16 at 17:31; Status DC Enoxaparin Sodium (Lovenox 40mg Syringe) 40 mg Q24H SQ Last administered on 20:21; Start 08/10/16 at 21:00 Multi-Ingred Cream/Lotion/Oil/ Oint (Hydrocerin) 1 moy BID TP Last administered on 08/14/16 07:56; Start 08/11/16 at 11:00 Clindamycin HCl 300 mg 300 mg TID PO Last administered on 08/13/16 08:22; Start 08/11/16 at 15:00; Stop 08/13/16 at 10:34; Status DC Vancomycin HCl/ Sodium Chloride (Iv Sodium Chloride 0.9% 500ml Bag) 500 ml @ 250 mls/hr Q12H IV Last administered on 08/12/16 04:55; Start 08/12/16 at 04: 30; Stop 08/12/16 at 11:24; Status DC Vancomycin HCl 1 each 1 each 1X ONCE MC ; Start 08/13/16 at 16:00; Stop at 16:00; Status DC Cefazolin Sodium 2 gm/Sodium Chloride 50 ml @ 100 mls/hr Q8HRS IV ; Start 08/12 at 12:00; Stop 08/12/16 at 12:00; Status DC Cefazolin Sodium/ Dextrose (Ancef 2gm Premix) 50 ml @ 100 mls/hr Q8HRS IV Last administered on 08/14/16 05:04; Start 08/12/16 at 12:00 Ropinirole HCl (Requip) 1 mg 1X ONCE PO Last administered on 08/13/16 10:42; Start 08/13/16 at 09:30; Stop 08/13/16 at 09:31; Status DC Active Scripts Active Requip (Ropinirole Hcl) 1 Mg Tablet 2 Mg PO Q24H Atorvastatin Calcium 20 Mg Tablet 20 Mg PO QHS Amlodipine Besylate 5 Mg Tablet 5 Mg PO DAILY Reported Aspir 81 (Aspirin) 81 Mg Tablet.dr 1 Tab PO DAILY Multivitamins (Multivitamin) 1 Each Tablet 1 Tab PO DAILY Ibuprofen 400 Mg Tablet 200 Mg PO PRN Q6HRS PRN Naproxen 500 Mg Tablet 1 Tab PO Q6HRS PRN Tricor (Fenofibrate Nanocrystallized) 48 Mg Tablet 1 Tab PO DAILY Vitals/I & O Vital Sign - Last 24 Hours 08/13/16 08/13/16 08/13/16 08/13/16 11:00 15:00 19:00 20:00 Temp 97.9 98.1 98.6 97.9 98.1 98.6 Pulse 98 100 104 Resp 16 18 20 B/P 121/72 127/71 126/81 Pulse Ox 94 94 92 O2 Delivery Room Air Room Air Room Air Room Air 08/13/16 08/14/16 23:00 03:00 Temp 98.3 97.9 98.3 97.9 Pulse 100 96 Resp 20 B/P 115/77 126/93 Pulse Ox 93 94 O2 Delivery Room Air Room Air Intake and Output 08/13/16 08/13/16 08/14/16 15:00 23:00 07:00 Intake Total 400 ml 680 ml 1500 ml Balance 400 ml 680 ml 1500 ml GERDA HUMPHRIES MD Aug 14, 2016 09:01
--- NOTE | 2016-08-14 09:41 | PDOC ---
Infectious Disease Note Subjective Subjective Better. Less swelling and pain Was hoping to go home ROS ROS GEN: Denies fevers, chills, sweats HEENT: Denies blurred vision, sore throat CV: Denies chest pain RESP: Denies shortness of air, cough GI: Denies n/v/d NEURO: Denies confusion, dizziness MSK: Denies weakness, joint pain/swelling Vital Sign Vital Signs Vital Signs Date Time Temp Pulse Resp B/P Pulse Ox O2 Delivery O2 Flow Rate FiO2 08/14/16 07:15 97.4 69 16 135/88 92 Room Air 97.4 Physical Exam PHYSICAL EXAM GENERAL: NAD, Alert, in bed with leg up HEENT: PERRL, OC/OP -clear NECK: Supple, no JVD, no LN LUNGS: Clear HEART: S1S2, no gallop, no murmur ABD: Soft, NT, no organomegaly, no rebound EXT: RLE with 1 plus edema and improved pain/erythema and only trace warmth. 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
[2016-08-14 11:30] VITALS: BP 121/79
[2016-08-14 15:00] VITALS: BP 125/88
[2016-08-14] MEDS: rOPINIRole 1 MG TABLET. PO SCH (18:29)
[2016-08-14 19:00] VITALS: BP 126/86
[2016-08-14] MEDS: ENOXAPARIN 40 MG/0.4 ML SYRINGE. SQ SCH (21:33)
[2016-08-14] MEDS: ATORVASTATIN CALCIUM 20 MG TABLET PO SCH (21:33)
[2016-08-14] MEDS: ACETAMINOPHEN 325 MG TABLET. PO PRN (21:33)
[2016-08-14 23:00] VITALS: BP 116/77
[2016-08-15] MEDS: HYDROCODONE/APAP 5/325MG TABLET. PO PRN ×2 (01:16→21:47)
[2016-08-15 03:00] VITALS: BP 104/69
[2016-08-15 07:00] VITALS: BP 121/75
[2016-08-15] MEDS: MINERAL OIL/PETROLATUM TOPICAL CREAM 113GM JAR. TP SCH ×2 (08:02→21:52)
[2016-08-15] MEDS: MULTIVITAMIN with MINERAL TABLET. PO SCH (08:02)
--- NOTE | 2016-08-15 09:13 | PDOC ---
Infectious Disease Note Subjective Subjective Better. Less swelling and pain but still some in calf ROS ROS GEN: Denies fevers, chills, sweats HEENT: Denies blurred vision, sore throat CV: Denies chest pain RESP: Denies shortness of air, cough GI: Denies n/v/d NEURO: Denies confusion, dizziness MSK: Denies weakness, joint pain/swelling Vital Sign Vital Signs Vital Signs Date Time Temp Pulse Resp B/P Pulse Ox O2 Delivery O2 Flow Rate FiO2 08/15/16 07:00 97.7 91 19 121/75 94 Room Air 97.7 Physical Exam PHYSICAL EXAM GENERAL: NAD, Alert HEENT: PERRL, OC/OP - clear NECK: Supple, no JVD, no LN LUNGS: Clear HEART: S1S2, no gallop, no murmur ABD: Soft, NT, no organomegaly, no rebound EXT: RLE with trace to 1 edema, still some warmth and erythema no cyanosis 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
--- NOTE | 2016-08-15 09:19 | PDOC ---
PROGRESS NOTES Subjective Subjective feels better. 1 loose stool yesterday and today. right leg skin peeling. Objective Objective Vital Signs Date Time Temp Pulse Resp B/P Pulse Ox O2 Delivery O2 Flow Rate FiO2 08/15/16 07:00 97.7 91 19 121/75 94 Room Air 97.7 Intake and Output 08/15/16 07:00 Intake Total 1500 ml Balance 1500 ml Intake Oral 1440 ml IV Total 60 ml # Voids 8 # Bowel Movements 1 Physical Exam Abdomen: Soft Heart: Regular rate, Normal S1, Normal S2 Extremities: Other (trace edema RLE) General: Alert HEENT: Atraumatic Lungs: Clear to auscultation Neuro: Normal speech Psych/Mental Status: Mental status NL Skin: Other (erythema and ecchymosis right pretibial are slowly fading. skin peeling) Assessment Assessment Problems Medical Problems: Cellulitis of the right leg, which is recurrent. improving 2. Sepsis.resolved 3. Leukocytosis. resolved 4. Hypokalemia. resolved 5. Hypertension. okay off of amlodipine 6. Hyperlipidemia. 7. Restless legs syndrome. (1) Cellulitis Status: Acute (2) Sepsis Status: Acute Plan Plan of Care continue iv cefazolin and leg elevation lab tomorrow eucerin cream Comment Review of Relevant I have reviewed the following items amado (where applicable) has been applied. Labs Microbiology 08/10/16 Blood Culture - Preliminary, Resulted NO GROWTH AFTER 4 DAYS Medications Current Medications Fentanyl Citrate 75 mcg 75 mcg PRN Q15MIN PRN IV PAIN GREATER THAN 3/10 Last administered on 08/10/16 15:25; Start 08/10/16 at 15:00; Stop 08/11/16 at 14:59 ; Status DC Sodium Chloride (Iv Sodium Chloride 0.9% 1000ml Bag) 1,000 ml @ 1,000 mls/hr Q1H IV Last administered on 08/10/16 15:25; Start 08/10/16 at 14:56; Stop at 15:55; Status DC Vancomycin HCl (Vanco Per Pharmacy) 1 each PRN DAILY PRN MC SEE COMMENTS Last administered on 08/12/16 05:57; Start 08/10/16 at 15:00; Stop 08/12/16 at 11:24 ; Status DC Piperacillin Sod/ Tazobactam Sod 1 each 1 each PRN DAILY PRN MC SEE COMMENTS; Start 08/10/16 at 15:00; Stop 08/12/16 at 12:17; Status DC Vancomycin HCl 2 gm/Sodium Chloride 500 ml @ 250 mls/hr 1X ONCE IV Last administered on 08/10/16 16:07; Start 08/10/16 at 15:45; Stop 08/10/16 at 17:44 ; Status DC Piperacillin Sod/ Tazobactam Sod/ Sodium Chloride (Zosyn/Iv Sodium Chloride 0.9 % 50ml) 50 ml @ 100 mls/hr 1X ONCE IV Last administered on 08/10/16 15:25; Start 08/10/16 at 15:15; Stop 08/10/16 at 15:44; Status DC Ondansetron HCl (Zofran) 4 mg PRN Q8HRS PRN IV NAUSEA/VOMITING Last administered on 08/10/16 19:27; Start 08/10/16 at 15:15; Stop 08/11/16 at 15:14 ; Status DC Morphine Sulfate 4 mg 4 mg PRN Q2HR PRN IV PAIN; Start 08/10/16 at 15:15; Stop 08/11/16 at 15:14; Status DC Sodium Chloride (Iv Sodium Chloride 0.9% 1000ml Bag) 1,000 ml @ 150 mls/hr Q6H40M IV ; Start 08/10/16 at 15:05; Stop 08/11/16 at 15:04; Status DC Acetaminophen 650 mg 650 mg PRN Q4HRS PRN PO FEVER; Start 08/10/16 at 15:15; Stop 08/10/16 at 17:02; Status DC Piperacillin Sod/ Tazobactam Sod 3.375 gm/Sodium Chloride 50 ml @ 100 mls/hr Q6HRS IV Last administered on 08/12/16 07:37; Start 08/11/16 at 00:00; Stop at 11:24; Status DC Sodium Chloride 1,000 ml @ 1,000 mls/hr 1X ONCE IV Last administered on 17:50; Start 08/10/16 at 16:00; Stop 08/10/16 at 16:59; Status DC Vancomycin HCl/ Sodium Chloride (Iv Sodium Chloride 0.9% 500ml Bag) 500 ml @ 250 mls/hr Q12H IV Last administered on 08/11/16 15:12; Start 08/11/16 at 04: 00; Stop 08/12/16 at 04:23; Status DC Vancomycin HCl 1 each 1X ONCE MC ; Start 08/12/16 at 03:30; Stop 08/12/16 at 03 :31; Status DC Vancomycin HCl (Vanco Per Pharmacy) 1 each PRN DAILY PRN MC SEE COMMENTS; Start 08/10/16 at 16:45; Status UNV Acetaminophen (Tylenol) 650 mg PRN Q4HRS PRN PO MILD PAIN / TEMP Last administered on 08/14/16 21:33; Start 08/10/16 at 16:45 Acetaminophen/ Hydrocodone Bitart (Lortab 5/325) 1 tab PRN Q4HRS PRN PO MODERATE - SEVERE PAIN Last administered on 08/15/16 01:16; Start 08/10/16 at 16:45 Amlodipine Besylate (Norvasc) 5 mg DAILY PO Last administered on 08/11/16 08: 37; Start 08/11/16 at 09:00; Stop 08/11/16 at 10:29; Status DC Atorvastatin Calcium (Lipitor) 20 mg QHS PO Last administered on 08/14/16 21: 33; Start 08/10/16 at 21:00 Multivitamins (Thera M Plus) 1 tab DAILY PO Last administered on 08/15/16 08: 02; Start 08/11/16 at 09:00 Naproxen (Naprosyn) 500 mg PRN BID PRN PO PAIN Last administered on 08/11/16 02:39; Start 08/10/16 at 16:45; Stop 08/11/16 at 10:29; Status DC Ropinirole HCl 2 mg 2 mg DAILY@19 PO Last administered on 08/14/16 18:29; Start 08/10/16 at 19:00 Potassium Chloride/Sodium Chloride (KCl 20 Meq-0.45% Nacl) 1,000 ml @ 75 mls/ hr [id number] IV Last administered on 08/11/16 09:11; Start 08/10/16 at 18:00; Stop 08/11/16 at 10:29; Status DC Potassium Chloride (Klor-Con) 20 meq 1X ONCE PO Last administered on 18:07; Start 08/10/16 at 17:30; Stop 08/10/16 at 17:31; Status DC Enoxaparin Sodium (Lovenox 40mg Syringe) 40 mg Q24H SQ Last administered on 21:33; Start 08/10/16 at 21:00 Multi-Ingred Cream/Lotion/Oil/ Oint (Hydrocerin) 1 moy BID TP Last administered on 08/15/16 08:02; Start 08/11/16 at 11:00 Clindamycin HCl 300 mg 300 mg TID PO Last administered on 08/13/16 08:22; Start 08/11/16 at 15:00; Stop 08/13/16 at 10:34; Status DC Vancomycin HCl/ Sodium Chloride (Iv Sodium Chloride 0.9% 500ml Bag) 500 ml @ 250 mls/hr Q12H IV Last administered on 08/12/16 04:55; Start 08/12/16 at 04: 30; Stop 08/12/16 at 11:24; Status DC Vancomycin HCl 1 each 1 each 1X ONCE MC ; Start 08/13/16 at 16:00; Stop at 16:00; Status DC Cefazolin Sodium 2 gm/Sodium Chloride 50 ml @ 100 mls/hr Q8HRS IV ; Start 08/12 at 12:00; Stop 08/12/16 at 12:00; Status DC Cefazolin Sodium/ Dextrose (Ancef 2gm Premix) 50 ml @ 100 mls/hr Q8HRS IV Last administered on 08/15/16 05:08; Start 08/12/16 at 12:00 Ropinirole HCl (Requip) 1 mg 1X ONCE PO Last administered on 08/13/16 10:42; Start 08/13/16 at 09:30; Stop 08/13/16 at 09:31; Status DC Active Scripts Active Requip (Ropinirole Hcl) 1 Mg Tablet 2 Mg PO Q24H Atorvastatin Calcium 20 Mg Tablet 20 Mg PO QHS Amlodipine Besylate 5 Mg Tablet 5 Mg PO DAILY Reported Aspir 81 (Aspirin) 81 Mg Tablet.dr 1 Tab PO DAILY Multivitamins (Multivitamin) 1 Each Tablet 1 Tab PO DAILY Ibuprofen 400 Mg Tablet 200 Mg PO PRN Q6HRS PRN Naproxen 500 Mg Tablet 1 Tab PO Q6HRS PRN Tricor (Fenofibrate Nanocrystallized) 48 Mg Tablet 1 Tab PO DAILY Vitals/I & O Vital Sign - Last 24 Hours 08/14/16 08/14/16 08/14/16 08/14/16 11:30 15:00 19:00 20:05 Temp 97.8 99.0 98.1 97.8 99.0 98.1 Pulse 99 97 99 Resp 16 20 B/P 121/79 125/88 126/86 Pulse Ox 95 95 94 O2 Delivery Room Air Room Air Room Air Room Air 08/14/16 08/15/16 08/15/16 08/15/16 23:00 01:16 03:00 07:00 Temp 98.3 97.7 97.7 98.3 97.7 97.7 Pulse 91 82 91 Resp 19 B/P 116/77 104/69 121/75 Pulse Ox 93 93 95 94 O2 Delivery Room Air Room Air Room Air Room Air Intake and Output 08/14/16 08/14/16 08/15/16 15:00 23:00 07:00 Intake Total 480 ml 60 ml 960 ml Balance 480 ml 60 ml 960 ml GERDA HUMPHRIES MD Aug 15, 2016 09:19
[2016-08-15 11:00] VITALS: BP 133/95
[2016-08-15] MEDS: ACETAMINOPHEN 325 MG TABLET. PO PRN (14:52)
[2016-08-15 15:00] VITALS: BP 128/79
[2016-08-15] MEDS: rOPINIRole 1 MG TABLET. PO SCH (18:34)
[2016-08-15 19:00] VITALS: BP 137/74
[2016-08-15] MEDS: ATORVASTATIN CALCIUM 20 MG TABLET PO SCH (21:47)
[2016-08-15] MEDS: ENOXAPARIN 40 MG/0.4 ML SYRINGE. SQ SCH (21:48)
[2016-08-15 23:00] VITALS: BP 128/81
[2016-08-16 05:09] LABS: BASO # 0.1 x10^3/uL (0.0-0.2); BASO % 1 % (0-3); EOS % 2 % (0-3); HEMOGLOBIN 13.7 g/dL (13.0-17.5); LYMPH # 2.9 x10^3/uL (1.0-4.8); LYMPH % 38 % (24-48); MEAN CORPUSCULAR HEMOGLOBIN 31 pg (25-35); MEAN CORPUSCULAR HGB CONC 34 g/dL (31-37); MEAN CORPUSCULAR VOLUME 90 fL (79-100); MONO % 10 % (0-9); NEUT % 49 % (31-73); PLATELET COUNT 288 x10^3/uL (140-400); RED BLOOD COUNT 4.46 x10^6/uL (4.30-5.70); WHITE BLOOD COUNT 7.6 x10^3/uL (4.0-11.0)
[2016-08-16 05:45] LABS: CALCIUM 8.6 mg/dL (8.5-10.1); GFR 77.6
[2016-08-16 07:00] VITALS: BP 131/84
[2016-08-16] MEDS: MULTIVITAMIN with MINERAL TABLET. PO SCH (10:00)
[2016-08-16] MEDS: MINERAL OIL/PETROLATUM TOPICAL CREAM 113GM JAR. TP SCH (10:00)
--- NOTE | 2016-08-16 10:35 | PDOC ---
PROGRESS NOTES Subjective Subjective cellulitis slowly improving. feels better. afebrile. lab reviewed. Objective Objective Vital Signs Date Time Temp Pulse Resp B/P Pulse Ox O2 Delivery O2 Flow Rate FiO2 08/16/16 07:00 97.7 89 20 131/84 97 Room Air 97.7 Intake and Output 08/16/16 07:00 Intake Total 1800 ml Balance 1800 ml Intake Oral 1800 ml # Voids 4 Physical Exam Abdomen: Soft Heart: Regular rate, Normal S1, Normal S2 Extremities: Other (trace edema RLE. leg elevated on pillow) General: Alert HEENT: Atraumatic Lungs: Clear to auscultation Psych/Mental Status: Mood NL Skin: No rashes, Other (ecchymosis right leg and less erythema. less tenderness ) Assessment Assessment Problems Medical Problems:Cellulitis of the right leg, which is recurrent. improving 2. Sepsis.resolved 3. Leukocytosis. resolved 4. Hypokalemia. resolved 5. Hypertension. okay off of amlodipine 6. Hyperlipidemia. 7. Restless legs syndrome. (1) Cellulitis Status: Acute (2) Sepsis Status: Acute Plan Plan of Care continue iv cefazolin leg elevation Comment Review of Relevant I have reviewed the following items amado (where applicable) has been applied. Labs Laboratory Tests Test 08/16/16 04:03 White Blood Count 7.6x10^3/uL (4.0-11.0) Red Blood Count 4.46x10^6/uL (4.30-5.70) Hemoglobin 13.7g/dL (13.0-17.5) Hematocrit 40.0% (39.0-53.0) Mean Corpuscular Volume 90fL (79-100) Mean Corpuscular Hemoglobin 31pg (25-35) Mean Corpuscular Hemoglobin Concent 34g/dL (31-37) Red Cell Distribution Width 13.0% (11.5-14.5) Platelet Count 288x10^3/uL (140-400) Neutrophils (%) (Auto) 49% (31-73) Lymphocytes (%) (Auto) 38% (24-48) Monocytes (%) (Auto) 10% (0-9) Eosinophils (%) (Auto) 2% (0-3) Basophils (%) (Auto) 1% (0-3) Neutrophils # (Auto) 3.7x10^3uL (1.8-7.7) Lymphocytes # (Auto) 2.9x10^3/uL (1.0-4.8) Monocytes # (Auto) 0.7x10^3/uL (0.0-1.1) Eosinophils # (Auto) 0.2x10^3/uL (0.0-0.7) Basophils # (Auto) 0.1x10^3/uL (0.0-0.2) Sodium Level 137mmol/L (136-145) Potassium Level 4.0mmol/L (3.5-5.1) Chloride Level 104mmol/L (98-107) Carbon Dioxide Level 26mmol/L (21-32) Anion Gap 7 (6-14) Blood Urea Nitrogen 15mg/dL (8-26) Creatinine 1.0mg/dL (0.7-1.3) Estimated GFR (Cockcroft-Gault) 77.6 Glucose Level 104mg/dL (70-99) Calcium Level 8.6mg/dL (8.5-10.1) Laboratory Tests Test 08/16/16 04:03 White Blood Count 7.6x10^3/uL (4.0-11.0) Red Blood Count 4.46x10^6/uL (4.30-5.70) Hemoglobin 13.7g/dL (13.0-17.5) Hematocrit 40.0% (39.0-53.0) Mean Corpuscular Volume 90fL (79-100) Mean Corpuscular Hemoglobin 31pg (25-35) Mean Corpuscular Hemoglobin Concent 34g/dL (31-37) Red Cell Distribution Width 13.0% (11.5-14.5) Platelet Count 288x10^3/uL (140-400) Neutrophils (%) (Auto) 49% (31-73) Lymphocytes (%) (Auto) 38% (24-48) Monocytes (%) (Auto) 10% (0-9) Eosinophils (%) (Auto) 2% (0-3) Basophils (%) (Auto) 1% (0-3) Neutrophils # (Auto) 3.7x10^3uL (1.8-7.7) Lymphocytes # (Auto) 2.9x10^3/uL (1.0-4.8) Monocytes # (Auto) 0.7x10^3/uL (0.0-1.1) Eosinophils # (Auto) 0.2x10^3/uL (0.0-0.7) Basophils # (Auto) 0.1x10^3/uL (0.0-0.2) Sodium Level 137mmol/L (136-145) Potassium Level 4.0mmol/L (3.5-5.1) Chloride Level 104mmol/L (98-107) Carbon Dioxide Level 26mmol/L (21-32) Anion Gap 7 (6-14) Blood Urea Nitrogen 15mg/dL (8-26) Creatinine 1.0mg/dL (0.7-1.3) Estimated GFR (Cockcroft-Gault) 77.6 Glucose Level 104mg/dL (70-99) Calcium Level 8.6mg/dL (8.5-10.1) Microbiology 08/10/16 Blood Culture - Final, Complete NO GROWTH AFTER 5 DAYS Medications Current Medications Fentanyl Citrate 75 mcg 75 mcg PRN Q15MIN PRN IV PAIN GREATER THAN 3/10 Last administered on 08/10/16 15:25; Start 08/10/16 at 15:00; Stop 08/11/16 at 14:59 ; Status DC Sodium Chloride (Iv Sodium Chloride 0.9% 1000ml Bag) 1,000 ml @ 1,000 mls/hr Q1H IV Last administered on 08/10/16 15:25; Start 08/10/16 at 14:56; Stop at 15:55; Status DC Vancomycin HCl (Vanco Per Pharmacy) 1 each PRN DAILY PRN MC SEE COMMENTS Last administered on 08/12/16 05:57; Start 08/10/16 at 15:00; Stop 08/12/16 at 11:24 ; Status DC Piperacillin Sod/ Tazobactam Sod 1 each 1 each PRN DAILY PRN MC SEE COMMENTS; Start 08/10/16 at 15:00; Stop 08/12/16 at 12:17; Status DC Vancomycin HCl 2 gm/Sodium Chloride 500 ml @ 250 mls/hr 1X ONCE IV Last administered on 08/10/16 16:07; Start 08/10/16 at 15:45; Stop 08/10/16 at 17:44 ; Status DC Piperacillin Sod/ Tazobactam Sod/ Sodium Chloride (Zosyn/Iv Sodium Chloride 0.9 % 50ml) 50 ml @ 100 mls/hr 1X ONCE IV Last administered on 08/10/16 15:25; Start 08/10/16 at 15:15; Stop 08/10/16 at 15:44; Status DC Ondansetron HCl (Zofran) 4 mg PRN Q8HRS PRN IV NAUSEA/VOMITING Last administered on 08/10/16 19:27; Start 08/10/16 at 15:15; Stop 08/11/16 at 15:14 ; Status DC Morphine Sulfate 4 mg 4 mg PRN Q2HR PRN IV PAIN; Start 08/10/16 at 15:15; Stop 08/11/16 at 15:14; Status DC Sodium Chloride (Iv Sodium Chloride 0.9% 1000ml Bag) 1,000 ml @ 150 mls/hr Q6H40M IV ; Start 08/10/16 at 15:05; Stop 08/11/16 at 15:04; Status DC Acetaminophen 650 mg 650 mg PRN Q4HRS PRN PO FEVER; Start 08/10/16 at 15:15; Stop 08/10/16 at 17:02; Status DC Piperacillin Sod/ Tazobactam Sod 3.375 gm/Sodium Chloride 50 ml @ 100 mls/hr Q6HRS IV Last administered on 08/12/16 07:37; Start 08/11/16 at 00:00; Stop at 11:24; Status DC Sodium Chloride 1,000 ml @ 1,000 mls/hr 1X ONCE IV Last administered on 17:50; Start 08/10/16 at 16:00; Stop 08/10/16 at 16:59; Status DC Vancomycin HCl/ Sodium Chloride (Iv Sodium Chloride 0.9% 500ml Bag) 500 ml @ 250 mls/hr Q12H IV Last administered on 08/11/16 15:12; Start 08/11/16 at 04: 00; Stop 08/12/16 at 04:23; Status DC Vancomycin HCl 1 each 1X ONCE MC ; Start 08/12/16 at 03:30; Stop 08/12/16 at 03 :31; Status DC Vancomycin HCl (Vanco Per Pharmacy) 1 each PRN DAILY PRN MC SEE COMMENTS; Start 08/10/16 at 16:45; Status UNV Acetaminophen (Tylenol) 650 mg PRN Q4HRS PRN PO MILD PAIN / TEMP Last administered on 08/15/16 14:52; Start 08/10/16 at 16:45 Acetaminophen/ Hydrocodone Bitart (Lortab 5/325) 1 tab PRN Q4HRS PRN PO MODERATE - SEVERE PAIN Last administered on 08/15/16 21:47; Start 08/10/16 at 16:45 Amlodipine Besylate (Norvasc) 5 mg DAILY PO Last administered on 08/11/16 08: 37; Start 08/11/16 at 09:00; Stop 08/11/16 at 10:29; Status DC Atorvastatin Calcium (Lipitor) 20 mg QHS PO Last administered on 08/15/16 21: 47; Start 08/10/16 at 21:00 Multivitamins (Thera M Plus) 1 tab DAILY PO Last administered on 08/16/16 10: 00; Start 08/11/16 at 09:00 Naproxen (Naprosyn) 500 mg PRN BID PRN PO PAIN Last administered on 08/11/16 02:39; Start 08/10/16 at 16:45; Stop 08/11/16 at 10:29; Status DC Ropinirole HCl 2 mg 2 mg DAILY@19 PO Last administered on 08/15/16 18:34; Start 08/10/16 at 19:00 Potassium Chloride/Sodium Chloride (KCl 20 Meq-0.45% Nacl) 1,000 ml @ 75 mls/ hr [id number] IV Last administered on 08/11/16 09:11; Start 08/10/16 at 18:00; Stop 08/11/16 at 10:29; Status DC Potassium Chloride (Klor-Con) 20 meq 1X ONCE PO Last administered on 18:07; Start 08/10/16 at 17:30; Stop 08/10/16 at 17:31; Status DC Enoxaparin Sodium (Lovenox 40mg Syringe) 40 mg Q24H SQ Last administered on 21:48; Start 08/10/16 at 21:00 Multi-Ingred Cream/Lotion/Oil/ Oint (Hydrocerin) 1 moy BID TP Last administered on 08/16/16 10:00; Start 08/11/16 at 11:00 Clindamycin HCl 300 mg 300 mg TID PO Last administered on 08/13/16 08:22; Start 08/11/16 at 15:00; Stop 08/13/16 at 10:34; Status DC Vancomycin HCl/ Sodium Chloride (Iv Sodium Chloride 0.9% 500ml Bag) 500 ml @ 250 mls/hr Q12H IV Last administered on 08/12/16 04:55; Start 08/12/16 at 04: 30; Stop 08/12/16 at 11:24; Status DC Vancomycin HCl 1 each 1 each 1X ONCE MC ; Start 08/13/16 at 16:00; Stop at 16:00; Status DC Cefazolin Sodium 2 gm/Sodium Chloride 50 ml @ 100 mls/hr Q8HRS IV ; Start 08/12 at 12:00; Stop 08/12/16 at 12:00; Status DC Cefazolin Sodium/ Dextrose (Ancef 2gm Premix) 50 ml @ 100 mls/hr Q8HRS IV Last administered on 08/16/16 05:53; Start 08/12/16 at 12:00 Ropinirole HCl (Requip) 1 mg 1X ONCE PO Last administered on 08/13/16 10:42; Start 08/13/16 at 09:30; Stop 08/13/16 at 09:31; Status DC Active Scripts Active Requip (Ropinirole Hcl) 1 Mg Tablet 2 Mg PO Q24H Atorvastatin Calcium 20 Mg Tablet 20 Mg PO QHS Amlodipine Besylate 5 Mg Tablet 5 Mg PO DAILY Reported Aspir 81 (Aspirin) 81 Mg Tablet.dr 1 Tab PO DAILY Multivitamins (Multivitamin) 1 Each Tablet 1 Tab PO DAILY Ibuprofen 400 Mg Tablet 200 Mg PO PRN Q6HRS PRN Naproxen 500 Mg Tablet 1 Tab PO Q6HRS PRN Tricor (Fenofibrate Nanocrystallized) 48 Mg Tablet 1 Tab PO DAILY Vitals/I & O Vital Sign - Last 24 Hours 08/15/16 08/15/16 08/15/16 08/15/16 11:00 15:00 19:00 20:00 Temp 97.9 98.1 97.9 97.9 98.1 97.9 Pulse 92 87 102 Resp 19 19 18 B/P 133/95 128/79 137/74 Pulse Ox 93 95 97 O2 Delivery Room Air Room Air Room Air Room Air 08/15/16 08/15/16 08/15/16 08/16/16 21:47 23:00 23:13 07:00 Temp 97.9 97.7 97.9 97.7 Pulse 94 89 Resp 18 18 18 20 B/P 128/81 131/84 Pulse Ox 97 97 97 97 O2 Delivery Room Air Room Air Room Air Room Air Intake and Output 08/15/16 08/15/16 08/16/16 15:00 23:00 07:00 Intake Total 600 ml 1200 ml 0 ml Balance 600 ml 1200 ml 0 ml GERDA HUMPHRIES MD Aug 16, 2016 10:35
[2016-08-16 11:01] VITALS: BP 157/84
--- NOTE | 2016-08-16 13:16 | PDOC ---
Infectious Disease Note Subjective Subjective Better. Less swelling and pain but still some in calf ROS ROS GEN: Denies fevers, chills, sweats HEENT: Denies blurred vision, sore throat CV: Denies chest pain RESP: Denies shortness of air, cough GI: Denies n/v/d NEURO: Denies confusion, dizziness MSK: Denies weakness, joint pain/swelling Vital Sign Vital Signs Vital Signs Date Time Temp Pulse Resp B/P Pulse Ox O2 Delivery O2 Flow Rate FiO2 08/16/16 11:01 97.9 94 15 157/84 97 Room Air 97.9 Physical Exam PHYSICAL EXAM GENERAL: Propped up in bed, NAD HEENT: PERRL. Normal conjunctivae. Oropharynx cavity pink and moist. NECK: Supple, no adenopathy present. CHEST: Lungs clear to auscultation. HEART: Normal S1 and S2. No murmur appreciated. ABDOMEN: Bowel sounds are present, soft, nontender. EXTREMITIES: RLE warm, but less swollen and red. NEUROLOGIC: Alert and oriented x 3. Moves all extremities. SKIN: Without rash. Labs Lab Laboratory Tests Test 08/16/16 04:03 White Blood Count 7.6x10^3/uL (4.0-11.0) Red Blood Count 4.46x10^6/uL (4.30-5.70) Hemoglobin 13.7g/dL (13.0-17.5) Hematocrit 40.0% (39.0-53.0) Mean Corpuscular Volume 90fL (79-100) Mean Corpuscular Hemoglobin 31pg (25-35) Mean Corpuscular Hemoglobin Concent 34g/dL (31-37) Red Cell Distribution Width 13.0% (11.5-14.5) Platelet Count 288x10^3/uL (140-400) Neutrophils (%) (Auto) 49% (31-73) Lymphocytes (%) (Auto) 38% (24-48) Monocytes (%) (Auto) 10% (0-9) Eosinophils (%) (Auto) 2% (0-3) Basophils (%) (Auto) 1% (0-3) Neutrophils # (Auto) 3.7x10^3uL (1.8-7.7) Lymphocytes # (Auto) 2.9x10^3/uL (1.0-4.8) Monocytes # (Auto) 0.7x10^3/uL (0.0-1.1) Eosinophils # (Auto) 0.2x10^3/uL (0.0-0.7) Basophils # (Auto) 0.1x10^3/uL (0.0-0.2) Sodium Level 137mmol/L (136-145) Potassium Level 4.0mmol/L (3.5-5.1) Chloride Level 104mmol/L (98-107) Carbon Dioxide Level 26mmol/L (21-32) Anion Gap 7 (6-14) Blood Urea Nitrogen 15mg/dL (8-26) Creatinine 1.0mg/dL (0.7-1.3) Estimated GFR (Cockcroft-Gault) 77.6 Glucose Level 104mg/dL (70-99) Calcium Level 8.6mg/dL (8.5-10.1) Objective Assessment Recurrent cellulitis of RLE w/ rapid onset - much better Fever - resolved Leukocytosis - better Lactic acidosis HTN Plan Plan of Care Cont Cefazolin for now. Dr Ladonna Caballero to see before discharge Leg elevation Attending Co-Sign The patient was seen and interviewed as well as examined at the bedside. The chart was reviewed. The case was discussed. Agree with the plan of care. SIRISHA FAGAN APRN Aug 16, 2016 13:16 KIP CABALLERO MD Aug 16, 2016 16:15
[2016-08-16 15:00] VITALS: BP 134/88
[2016-08-16] MEDS ORDERED: CEPH-264 PO (16:19)
--- NOTE | 2016-08-17 10:55 | PDOC ---
Provider Note Provider Note discharge summary dictated # [id number] GERDA HUMPHRIES MD Aug 17, 2016 10:55
--- NOTE | 2016-08-17 12:12 | DS ---
DATE OF DISCHARGE: 08/16/2016 CONSULTANTS: Dr. Neo Pabon and Dr. Chand. FINAL DIAGNOSES: 1. Recurrent cellulitis of the right leg. 2. Venous stasis insufficiency. 3. Sepsis. 4. Leukocytosis. 5. Hypokalemia. 6. Hypertension. 7. Hyperlipidemia. 8. Restless legs syndrome. HOSPITAL COURSE: The patient is a 56-year-old white male with a history of hypertension, hyperlipidemia, previous history of cellulitis in the right leg in 03/2016, admitted to [facility] with a 3-day history of increasing redness of his right leg associated with pain and swelling, without any skin injury or skin tear. He had a fever of 104 degrees at home. Had not been eating or drinking fluids very well, went to the Emergency Room, his lactic acid level was elevated, had a leukocytosis. Some erythema and ecchymosis in the right pretibial area of the right calf and right medial thigh and he has had some lymphadenopathy near his right groin and was subsequently admitted to the hospital, started on IV antibiotics, received IV vancomycin and IV Zosyn and eventually switched to IV cefazolin by the Infectious Disease consultants, seen in consultation by Dr. Neo Pabon and Dr. Chand. The patient's cellulitis slowly improved. A venous Doppler of the right leg was negative for deep vein thrombosis. He was treated with leg elevation, IV antibiotics and eventually was dismissed on 08/16/2016 on Keflex 500 mg q.i.d. for 7 days, doxycycline 100 mg b.i.d. for 7 days as the cellulitis did improve. His amlodipine was discontinued. His blood pressure was low initially and was under good control without it. He therefore was dismissed on Keflex 500 mg q.i.d. for 7 days, doxycycline 100 mg b.i.d. for 7 days, simvastatin 20 mg every day, Coenzyme Q10 every day, a multiple vitamin every day and Requip 2 mg at 7 p.m. daily. He will follow up with Dr. Carrero in the office next week. GERDA CARRERO MD DR: SILVERIO/faustino JOB#: [id number] / [id number]
== END 2016-08-16 18:29 | disposition home or self-care (01) | DRG 872 ==
LOC: ER 14:24 → 5 NORTH 15:00
PROVIDERS: ADMIT Internal Medicine; ATTEND Internal Medicine
DX: A41.9 Sepsis, unspecified organism (principal); L03.115 Cellulitis of right lower limb; R59.1 Generalized enlarged lymph nodes; E78.00 Pure hypercholesterolemia, unspecified; E78.5 Hyperlipidemia, unspecified; E87.6 Hypokalemia; G25.81 Restless legs syndrome; I10 Essential (primary) hypertension; I87.8 Other specified disorders of veins; N40.0 Benign prostatic hyperplasia without lower urinary tract symptoms; Z79.899 Other long term (current) drug therapy; Z90.49 Acquired absence of other specified parts of digestive tract; Z88.1 Allergy status to other antibiotic agents; Z91.013 Allergy to seafood; Z88.8 Allergy status to other drugs, medicaments and biological substances; Z91.018 Allergy to other foods; Z82.49 Family history of ischemic heart disease and other diseases of the circulatory system; Z80.9 Family history of malignant neoplasm, unspecified
CPT/HCPCS: 36415; 71010; 80048; 80053; 80202; 81001; 83605; 85007; 85027; 87040; 93005; 93971; 96365; 96367; 96375; J0690; J1650; J2405; J2543; J3010; J3370; J7030; J7040; 99285-25

== ENCOUNTER → 2019-07-09 | Outpatient (CLI) | payer OTHER ==
[2019-06-11 10:22] VITALS: BP 132/71
[~2019-07-09] MED LIST changes: +AMLO5TAB10 PO; -AMLO5TAB2 PO; +ASPI-482 PO; +AZIT250T6 PO; +CEPH-264 PO; +CEPH250C PO; +FENO134C PO; +FENO48TA16 PO; -HYDR-2666 PO; +HYDR-2761 PO; +IBUP-1027 PO; +MULT1TAB52 PO; +NAPR-514 PO; +PANT40TA77 PO; +ROPI0.5T PO; +coq10 PO
--- NOTE | 2019-07-09 13:24 | RAD ---
Examination: CT chest without contrast HISTORY: History of lung nodule follow-up COMPARISON: 06/10/2019 TECHNIQUE: Axial CT images of chest were performed with performed without contrast and coronal sagittal reformats are performed. Exposure: One or more of the following individualized dose reduction techniques were utilized for this examination: 1. Automated exposure control 2. Adjustment of the mA and/or kV according to patient size 3. Use of iterative reconstruction technique FINDINGS: The previously visualized groundglass airspace opacity and nodules identified in the right upper lobe of the lung are not visualized on today's examination. The lungs are clear. The visualized noncontrasted liver, spleen, adrenals grossly appears unremarkable. Moderate degenerative changes thoracic spine. IMPRESSION: Interval resolution of the groundglass opacity and nodules right upper lobe lung seen on prior exam. Electronically signed by: Jose Mckeon MD (07/09/2019 1:21 PM) [id number]
== END | disposition home or self-care (01) ==
LOC: CT 12:35
PROVIDERS: ATTEND Internal Medicine Critical Care Medicine
DX: M47.819 Spondylosis without myelopathy or radiculopathy, site unspecified (principal)
CPT/HCPCS: 71250